=== PATIENT | male | born 1940 | race Caucasian/White ===

== ENCOUNTER 2023-09-28 17:20 | Outpatient (REF) | payer MEDICARE, SELFPAY ==
--- NOTE | 2023-09-28 13:15 | SKI_PTH ---
PATIENT: Gerardo Gordon LOC: [facility] U#:[id number] AGE/SX: 83/M ROOM: RE09/28/[address]: DEANA VENEGAS : 1940 BED: DIS: 09/28/2023 SPEC #: [id number] RECD: 09/28/23 18:12 STATUS: STEPHANIA REMaria Victoria #: [id number] VARUN: 09/28/23 13:[address]: DEANA VENEGAS DEPT: Surgical Specimen RECD BY: Rula Marin ENTERED: 09/28/23 18:13 SP TYPE: SKI OTHR DR: Darling Pena Tissues: 1 - SKIN BIOPSY(SHAVE/PUNCH) Procedures: SKIN LEVEL 4 Comments: [id number]
[2023-09-28 16:51] LABS: ALT 22 U/L (16-63); AST 21 U/L (15-37); Albumin 3.1 g/dL (3.4-5.0); Alkaline Phosphatase 104 U/L (46-116); Anion Gap 10.3 mmol/L (3-11); BUN 20 mg/dL (7-18); Bilirubin, Total 0.44 mg/dL (0.2-1.0); CO2 25.7 mmol/L (21.0-32.0); CREATININE 1.3 mg/dL (0.70-1.30); Calcium 8.9 mg/dL (8.5-10.1); Chloride 103 mmol/L (98-107); Estimated GFR 55.19 (mL/min/1.73m2); Glucose 96 mg/dL (74-106); Sodium 139 mmol/L (136-145); Total Protein 7.2 g/dL (6.4-8.2)
== END 2023-09-28 17:21 | disposition home or self-care (01) ==
LOC: LBN 17:20
PROVIDERS: Visit Provider Nurse Practitioner Family
DX: L03.114 Cellulitis of left upper limb (principal); D48.5 Neoplasm of uncertain behavior of skin
CPT/HCPCS: 80053; 87077; 87070; 87186; 87205; 88305

== ENCOUNTER 2023-10-09 19:15 | Outpatient (REF) | payer MEDICARE, SELFPAY | END 2023-10-09 19:16 | disposition home or self-care (01) | LOC: LBN 19:15 | PROVIDERS: Visit Provider Physician Assistant Medical | DX: C44.92 Squamous cell carcinoma of skin, unspecified (principal) | CPT/HCPCS: 87077; 87070; 87186; 87205 ==

== ENCOUNTER 2024-05-22 04:00 | Inpatient (IN) | payer MEDICARE, OTHER, SELFPAY ==
[2024-05-22] VITALS (42 sets, daily range): BP systolic 90–144; BP diastolic 54–78; PULSE 70–147; RESP 8–25; TEMP 37.4–37.9; O2SAT 94–99
--- NOTE | 2024-05-22 04:00 | DI.CT_ITS ---
Exam(s) CT HEAD FACIAL WO EXAM: CT HEAD FACIAL WO CLINICAL HISTORY: confused. TECHNIQUE: Imaging Protocol: Axial computed tomography images with coronal and sagittal reformatted images were created and reviewed COMPARISON: CT HEAD WITHOUT CONTRAST from 04/30/2016 FINDINGS: CT Head: Ventricles and Extra axial spaces: Normal in size and morphology for the patient's age. Hemorrhage: None. Cerebral parenchyma: There are areas of decreased attenuation in the white matter consistent with chr onic microvascular ischemic disease. No evidence of an acute territorial infarct. No acute mass eff ect. Midline shift: None. Brainstem/Cerebellum: Normal. Calvarium: Normal. Visualized Paranasal sinuses/Mastoids: Clear. Soft Tissues: Unremarkable. CT Face: There is artifact from the patient's dental work. Facial Bones: No definite fracture is noted in facial bones. There is no soft tissue swelling over t he nasal bone to suggest acute injury. Please correlate clinically. Sinuses and Mastoids: Unremarkable. Globes, extraocular muscles, optic nerves and retrobulbar fat: Normal. Upper aerodigestive tract: Normal. Mandible and bilateral temporomandibular joints: Normal. Soft tissues: Normal. IMPRESSION: 1. No acute intracranial process. 2. No acute fracture or subluxation in the cervical spine. 3. No definite acute facial fracture. There is no soft tissue swelling seen over the nasal bones to s uggest acute injury. Please correlate clinically. RADIATION DOSE DELIVERED: !Error Total DLP DATA REPOSITORY: All CT scans at this facility are submitted to the National Radiology Data Registry (NRDR) Dose Index Registry (DIR) with the [employer] (ACR). RADIATION OPTIMIZATION: All CT scans at this facility use at least one of these dose optimization te chniques: automated exposure control; mA and/or kV adjustment per patient size (includes targeted exa ms where dose is matched to clinical indication); or iterative reconstruction.
--- NOTE | 2024-05-22 04:00 | RT.EKG_ITS ---
APPROVED REPORT Exam: Resting ECG Reason for Exam: weakness Patient Location: E HR:80 bpm ECG Measurements Heart Rate 80 AXIS TX 236 P 57 QRSd 184 QRS -30 QT 465 T 124 QTc 538 Conclusion Sinus rhythm...normal P axis, V-rate 60- 99 Prolonged TX interval...TX >220, V-rate 50- 90 Left bundle branch block...QRSd>120, broad/notched R
--- NOTE | 2024-05-22 04:07 | ED.GENADUL_ITS ---
Discharge Plan Discharge Details Chief Complaint: GenMedical Primary Care Provider: Unknown,Unknown ED Provider: Magdi Day Home Meds and New Rx's Prescriptions: No Action No Known Home Meds HPI General Date/Time Provider Initiated Documentation: 05/22/24 04:07 . HPI Narrative: Patient presents emergency department via ambulance and was a very poor histo israel stating that he has not been feeling well very weak and has a lesion in his left hand that has been gone on for weeks. Reports fever chills and discomfort Related Data Home Medications ?Medication ?Instructions ?Recorded ?Confirmed Unknown [No Known Home Meds] 04/30/16 05/22/24 Allergies Allergy/AdvReac Type Severity Reaction Status Date / Time No Known Allergies Allergy Verified 05/22/24 04:34 General Stated Complaint: GenMedical KENNETH: 3 Review of Systems Narrative: Review of Systems: Constitutional: No fevers, chills, sweats Eye: No recent visual problems ENT: No ear pain, nasal congestion, sore throat Respiratory: No shortness of breath, cough Cardiovascular: No Chest pain, palpitations, syncope Gastrointestinal: No nausea, vomiting, diarrhea Genitourinary: No hematuria Les/Lymph: Negative for bruising tendency, swollen lymph glands Endocrine: Negative for excessive thirst, excessive hunger Musculoskeletal: No back pain, neck pain, joint pain, muscle pain, decreased range of motion Integumentary: No rash, pruritus, abrasions Neurologic: Alert & oriented X 4 Psychiatric: No anxiety, depression Exam Narrative Exam Narrative: Exam; vitals signs as reported above normal Constitutional; In no acute distress, afebrile General: cooperative, healthy appearing, comfortable and no acute distress HEENT: Head: normal to inspection, no palpable skull fracture and normocephalic atraumatic Eyes: : appearance normal, both eyes and all related structures EOM intact bilaterally Pupils: PERRL : conjunctiva normal Direct ophthalmoscopy: normal light reflex, normal conjunctiva, normal visual acuity Ears: Normal TM, normal external canal Nose: normal no rhinorreha Neck no JVD, supple non tender Neck: normal visual inspection, full ROM and no lymphadenopathy Chest: normal inspection of the chest Respiratory : normal respiratory effort and able to speak in complete sentences no wheezing no rales Cardio Rate: regular rate, rhythm: regular rhythm normal heart sounds S1 and S2 no murmurs, gallops, or rubs GI : normal to inspection, normal bowel sounds, soft, non tender, non distended, no organomegaly Back/Spine/ no CVA tenderness Thoracic/Lumbar Spine: no tenderness or deformities Skin no rashes or lesions Neuro: patient alert oriented x 4 and no meningeal signs, Cranial Nerves: CN's II-XI intact bilaterally, Cognition: normal cognition, Speech: speech normal, Gait: normal gait, Depp tendon reflexes normal 2+ muscle strength 5/5 bilaterally Extremities, redness swelling in the dorsal aspect of the left hand up to the mid forearm with a central necrotic foul-smelling fungating lesion : normal Rectal: Deferred Course Vital Signs Vital signs: Vital Signs Temperature 37.5 C 05/22/24 04:01 Pulse 81 05/22/24 04:01 Respiratory Rate 20 05/22/24 04:01 Pulse Oximetry 98 05/22/24 04:01 Temperature 37.5 C 05/22/24 04:01 Temperature Source Temporal Artery Scan 05/22/24 04:01 Pulse 81 05/22/24 04:01 Respiratory Rate 20 05/22/24 04:01 Blood Pressure Position Supine 05/22/24 04:01 Pulse Oximetry 98 05/22/24 04:01 Oxygen Delivery Method Room Air 05/22/24 04:01 Oxygen Flow Rate 0 05/22/24 04:01 Pain Level 0 05/22/24 04:01 Medical Decision Making MDM: Summary: Patient was confused who has a necrotic lesion in the left hand with probable infection and a fungating mass which probably is a neoplasia. He will need to be admitted for management and debridement wound care and biopsy of the lesion he was given IV antibiotics also he is dehydrated with a BUN and creatinine elevation. Data Review Analysis All the data on this patient was reviewed by me including laboratory and imaging studies as well as bedside studies performed by me Independent review of Studies Imaging Lab: Risk Stratification: Differential Diagnosis: 1. 2. 3. 4. 5. Consultants: Shared disposition: Impression: Quality:SDOH Health Related Social Needs: No Data to Display [facility] Social History Smoking/Tobacco Use Status: Never Smoking risk assessment performed?: Yes Alcohol Intake: never Substance use type: does not use Housing: house Do you feel safe at home: Yes Do you feel safe in your relationship?: Yes
[2024-05-22 04:33] LABS: Source Nasal/Nares
[2024-05-22] MEDS: Lactated Ringers 1,000 ML 2100 ML IV ×2 (04:33→05:01)
[2024-05-22 04:42] LABS: Abs Immature Grans 0.06 10^3/uL (0.0-0.06); Absolute Basophil Count 0.02 10^3/uL (0.0-0.2); Absolute Eosinophil Count 0.14 10^3/uL (0.0-0.7); Absolute Lymphocyte Count 1.92 10^3/uL (1.2-3.4); Absolute Monocyte Count 0.89 10^3/uL (0.1-0.8); Absolute Neutrophil Count 7.94 10^3/uL (1.2-6.7); Basophils % 0.2 %; Eosinophils % 1.3 %; HCT 38.1 % (40.0-50.0); HGB 12.4 g/dL (13.5-17.5); Immature Grans % 0.5 %; Lymphocytes % 17.5 %; MCHC 32.5 % (32.0-36.0); MCV 92 fL (80-95); MPV 9.1 fL (8.0-11.0); Monocytes % 8.1 %; Neutrophils % 72.4 %; Platelet Count 283 10^3/uL (130-400); RBC 4.13 10^6/uL (4.36-5.78); RDW 13.5 % (11.8-14.1); RDW-SD 45.1 fL; WBC 10.97 10^3/uL (4.4-10.8)
[2024-05-22 04:59] LABS: ALT 14 U/L (16-63); AST 15 U/L (15-37); Albumin 2.8 g/dL (3.4-5.0); Alkaline Phosphatase 118 U/L (46-116); Anion Gap 6.6 mmol/L (3-11); BUN 21 mg/dL (7-18); Bilirubin, Total 0.61 mg/dL (0.2-1.0); CO2 29.4 mmol/L (21.0-32.0); CREATININE 1.5 mg/dL (0.70-1.30); Calcium 11.4 mg/dL (8.5-10.1); Chloride 106 mmol/L (98-107); Estimated GFR 46.48 (mL/min/1.73m2); Glucose 114 mg/dL (74-106); Potassium 3.6 mmol/L (3.5-5.1); Sodium 142 mmol/L (136-145); Total Protein 8.1 g/dL (6.4-8.2); Troponin I 14 ng/L (<or=76)
[2024-05-22 05:09] LABS: COVID-19 PCR Negative (Negative)
[2024-05-22 06:24] LABS: Troponin I 17 ng/L (<or=76)
--- NOTE | 2024-05-22 06:44 | DI.VRAD_ITS ---
PROCEDURE INFORMATION: Exam: CT Head Without Contrast Exam date and time: 05/22/2024 6:16 AM Age: 83 years old Clinical indication: Injury or trauma; Blunt trauma (contusions or hematomas) and other: Confusion; Other: Frequent falls and confusion TECHNIQUE: Imaging protocol: Computed tomography of the head without contrast. COMPARISON: No relevant prior studies available. FINDINGS: Brain: No intracranial hemorrhage appreciated. No significant focal mass effect or significant midline shift. Generalized parenchymal volume loss. Chronic ischemic changes are noted. Cerebral ventricles: No disproportionate ventriculomegaly. Paranasal sinuses: No air-fluid levels seen. Mastoid air cells: No mastoid effusion. Bones: Right nasal bone deformities of indeterminate chronicity. Soft tissues: No acute findings. Vasculature: Arterial calcifications. IMPRESSION: 1. No intracranial sequelae of trauma appreciated. 2. Findings as above. 3. Additional studies dictated separately. PROCEDURE INFORMATION: Exam: CT Maxillofacial Without Contrast Exam date and time: 05/22/2024 6:16 AM Age: 83 years old Clinical indication: Injury or trauma; Blunt trauma (contusions or hematomas) and other: Confusion; Other: Frequent falls and confusion TECHNIQUE: Imaging protocol: Computed tomography of the face without contrast. COMPARISON: No relevant prior studies available. FINDINGS: Limitations: Artifact from metallic dental hardware obscures surrounding tissues. Paranasal sinuses: No air-fluid levels seen. Orbital cavities: Globes intact. Lymph nodes: Bilateral cervical lymph nodes. Vasculature: Arterial calcifications. Bones: Right nasal bone deformities of indeterminate chronicity. Soft tissues: No acute pertinent abnormality demonstrated. IMPRESSION: 1. Right nasal bone deformities of indeterminate chronicity. Clinical correlation and comparison with prior studies advised. 2. Additional studies dictated separately. Dictated and Authenticated by: Claudia Saldivar MD. Orderin Shay Fairbanks MD
[2024-05-22 06:53] LABS: Bilirubin Negative (Negative); Blood Trace-intact (Negative); Clarity Sl Cloudy (Clear); Glucose Negative (Negative); Ketones Negative (Negative); Leukocyte Esterase Negative (Negative); Nitrite Negative (Negative)
[2024-05-22 07:03] LABS: Bacteria Rare HPF (Negative); Crystals Few Amorphous HPF (Negative); Epithelial Cells Negative HPF (Negative); Other Cells Negative (Negative); RBC 0-2 HPF (0-2); WBC 0-2 HPF (0-5)
[2024-05-22 07:04] LABS: C & S Indicated? C&S Done As Ordered; Casts Negative LPF (Negative); Mucus Negative (Negative)
--- NOTE | 2024-05-22 07:15 | DI.RAD_ITS ---
Exam(s) XR HAND LT COMPLETE XR WRIST LT COMPLETE EXAM: XR HAND LT COMPLETE and XR wrist LT complete CLINICAL HISTORY: Fungating mass, cellulitis, eval osteo. TECHNIQUE: 2D digital imaging was performed of the left wrist and hand. Seven views were obtained. AP, lateral and oblique views were obtained. COMPARISON: There are no priors for comparison. FINDINGS: BONES: No acute fracture is present. Bones are osteopenic. There is thinning of the with of the shaf ts of both the 4th and 5th metacarpal bones. There is loss of the cortex along the radial aspect of the diaphysis of the 4th metacarpal bone. Osteomyelitis should be considered. JOINTS: No dislocation present. There are degenerative changes seen in the hand and wrist, particular ly at the 1st CMC joint.. SOFT TISSUE: There is marked soft tissue swelling seen at the ulnar aspect of the hand and wrist. No foreign body is identified. There is a defect at the skin surface on the dorsal aspect of the hand suspicious for an ulcer. IMPRESSION: 1. Marked soft tissue swelling at the dorsal and ulnar aspect of the hand and wrist. On the lateral view of the hand there is E defect seen at the skin surface suspicious for an ulceration. 2. There appears to be loss of the cortex seen at the radial aspect and dorsal aspect of the diaphysi s of the 4th metacarpal bone suspicious for osteomyelitis. 3. Diffuse osteopenia. 4. An MRI of the hand without and with contrast is recommended for further evaluation. DATA REPOSITORY: RADIATION DOSE DELIVERED:
--- NOTE | 2024-05-22 07:42 | W.EDPROG ---
Date of service: 05/22/24 Time of Service: 07:51 Medical Decision Making In brief, this is an 83-year-old male patient with a history of melanoma of the left hand, who was brought in by EMS with weakness and increasing pain in his left hand. The patient was evaluated by the prior provider, who noted a fungating mass with surrounding cellulitis, concerning for infection, for which the patient was started on vancomycin. He had a CT scan of his brain that was unremarkable, and his laboratory studies were reviewed by myself, showing no significant leukocytosis, mild anemia, and mild renal dysfunction with a BUN of 21 and a creatinine of 1.5. Otherwise no significant abnormalities, UA with trace hematuria but otherwise noninfectious, COVID-negative. At the time that I took over this patient's care, he was awaiting evaluation by the hospitalist service as he will certainly require admission for intravenous antibiotics. After discussion with their team, the decision to proceed with x-ray imaging to evaluate for osteomyelitis was made. I did have an extended conversation with the patient and his family member regarding their wishes and goals of care. 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 He states after an extended discussion that he would be amenable to diagnostics including laboratory studies and x-rays, as well as treatment for this infection, but is not desiring of treatment for the mass on his hand. He is concerned that medical treatment will cause him to lose the function of his hands, and I am concerned that the malignancy is extensive enough that definitive management would likely involve significant disability to that left hand. X-ray imaging reveals a concern for possible osteomyelitis of the fourth metacarpal, right arm I did discuss this patient's case with orthopedics, who states that they would not take him down to [facility] or do any interventions prior to MRI imaging, and even then given his hemodynamic stability and lack of laboratory abnormalities could possibly be done in the outpatient environment. I discussed this case with the hospitalist, and feel that the patient would benefit from admission for stabilization and transition to oral antibiotics, as well as for MRI imaging tomorrow for surgical planning and diagnostic clarity. The hospitalist is graciously accepted this patient for admission to their service and he was transferred from our department without incident. Leanna Bowen MD Medical Records Medical records reviewed: Yes I reviewed the patient's medical records. Lab Data Lab results reviewed: Yes I reviewed the patient's lab results. Quality:SDOH Health Related Social Needs: No Data to Display Discharge Plan Discharge Details Chief Complaint: GenMedical Admit Date/Time: 05/22/24 12:41 Admit Provider: Jag Silverio Attending Provider: Jga Silverio Primary Care Provider: Yue,Unknown ED Provider: Leanna Bowen Discharge Data Discharge Date/Time-TO BE ENTERED AT DEPARTURE: 05/22/24 14:35
--- NOTE | 2024-05-22 09:40 | W.PM.PROGNOT ---
Date of Service Date of service: 05/22/24 Time of Service: 09:40 Assessment and Plan Assessment and plan (1) Mass of hand: Status: Acute Assessment and plan: I spoke with Dr. Day earlier this morning regarding my opinion of what appears to be a soft tissue mass on the dorsum of Mr. Gordon's left hand. It sounds like he came to the hospital because of concerns of infection. He was found to have a elevation of his white blood cell count, and some clinical features that raise concern for soft tissue infection associated with this mass. When I came to see the patient, he was under the care of Dr. Bowen. 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 She did show me a photograph of the lesion, which appears to be a large fungating mass replacing the majority of the dorsum of the left hand. Obviously, my opinion and recommendations are quite limited without a detailed physical exam, but I think it safe to say that this represents some type of relatively advanced malignancy. This would certainly compromise the tissue integrity, and expose him to risk of infections. I am more than happy to help with a biopsy, if the Gordon's are interested in a tissue diagnosis. It is hard to imagine any definitive treatment, or even palliative therapies in that regard, that would not involve some type of advanced surgical resection and probably radiation therapy. If the Gordon's reconsider how they would like this diagnosed and treated, or if they have questions regarding what those options might look like with regards to the episcopalian beliefs, I more than happy to participate. Objective Last Vital Signs Temp 99.5 F 05/22/24 04:01 Pulse 84 05/22/24 06:31 Resp 20 05/22/24 06:31 BP 133/62 05/22/24 06:30 Pulse Ox 97 05/22/24 06:31 Laboratory Results - last 24 hr 05/22/24 05/22/24 05/22/24 04:25 05:50 06:35 WBC 10.97 H RBC 4.13 L Hgb 12.4 L Hct 38.1 L MCV 92 MCH 30.0 MCHC 32.5 RDW 13.5 Plt Count 283 MPV 9.1 Immature Gran % 0.5 Neutrophils % 72.4 Lymphocytes % 17.5 Monocytes % 8.1 Eosinophils % 1.3 Basophils % 0.2 Nucleated RBC % 0.0 Absolute Neutrophils 7.94 H Absolute Lymphocytes 1.92 Absolute Monocytes 0.89 H Absolute Eosinophils 0.14 Absolute Basophils 0.02 Sodium 142 Potassium 3.6 Chloride 106 Carbon Dioxide 29.4 Anion Gap 6.6 BUN 21 H Creatinine 1.5 H Est GFR (CKD-EPI 2020) 46.48 Glucose 114 H Calcium 11.4 H Magnesium 2.0 Total Bilirubin 0.61 AST 15 ALT 14 L Alkaline Phosphatase 118 H Troponin I 14 17 Total Protein 8.1 Albumin 2.8 L Urine Color Yellow Urine Clarity Sl Cloudy Urine pH 7.0 Ur Specific [place] 1.020 Urine Protein Negative Urine Ketones Negative Urine Blood Trace-intact H Urine Nitrite Negative Urine Bilirubin Negative Urine Urobilinogen 1.0 H Ur Leukocyte Esterase Negative Urine RBC 0-2 Urine WBC 0-2 Ur Epithelial Cells Negative Urine Crystals Few Amorphous Urine Bacteria Rare Urine Casts Negative Urine Mucus Negative Urine Other Negative Ur Culture Indicated? C&S Done As Ordered Urine Glucose Negative COVID-19 Source Nasal/Nares SARS-CoV-2 (PCR) Negative Time Spent with Patient Time Spent with Patient: <25 minutes Time was spent: preparing to see the patient(eg.review tests), referring, communicating with other health hospice care sales consultant, indepentently interpreting results and care coordination
--- NOTE | 2024-05-22 12:42 | HPE_ITS ---
Date of service: 05/22/24 Time of Service: 12:42 Assessment and Plan Assessment and plan (1) Mass of hand: Status: Acute Assessment and plan: Per record history of melanoma. Now appears infected. Blood cultures are pending. Does not meet criteria for sepsis, hemodynamically stable. Continue vancomycin pharmacy dosing Imaging concerning for possible osteomyelitis. Awaiting MRI for tomorrow. ED discussed case with orthopedics at [facility] who is in agreement with plan to continue antibiotics and obtain advanced imaging. Continue pain management Follow labs including inflammatory markers DVT prophylaxis enoxaparin daily History of Present Illness Narrative: This is a 83-year-old male patient past medical history significant 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 Does not meet sepsis criteria with stable vital signs. He was started on vancomycin. Blood cultures have been obtained and pending inflammatory markers have been added.. He received IV bolus in the emergency department. He underwent imaging of the hand that did show marked soft tissue swelling and an area on the radial and dorsal aspect of the diaphysis of the fourth metatarsal carpals suspicious for osteomyelitis. Imaging by MRI is recommended to further characterize. The case was discussed with orthopedics at [facility] who is in agreement with continuation of antibiotics for now and MRI. Hospitalist is asked to admit to the medical surgical unit for further treatment and management. Of note it is documented patient is a poor historian and did undergo a head CT which showed no acute findings Review of Systems All systems reviewed & are unremarkable except as noted in HPI and below PFSH All Active Problems (Updated 05/22/24 @ 09:41 by Varun Benitez MD) Mass of hand (Acute) Social History Smoking/Tobacco Use Status: Never Smoking risk assessment performed?: Yes Alcohol Intake: never Substance use type: does not use Housing: house Do you feel safe at home: Yes Do you feel safe in your relationship?: Yes Meds Allergies and Home Medications Allergies Allergy/AdvReac Type Severity Reaction Status Date / Time No Known Allergies Allergy Verified 05/22/24 04:34 Home Medications ?Medication ?Instructions ?Recorded ?Confirmed ?Type Unknown [No Known Home Meds] 04/30/16 05/22/24 History Exam Narrative Exam Narrative: Elderly male of stated age no acute distress head is atraumatic eyes nonicteric noninjected EOMs intact oral mucosas moist neck supple full range of motion no JVD no meningeal signs cardiovascular regular rate and rhythm respirations even and unlabored abdomen benign left hand dorsal aspect up to his mid forearm with necrotic appearing lesion. Surrounding erythema. Results Labs 05/22/24 04:25 05/22/24 04:25 Labs: Laboratory Results - last 24 hr 05/22/24 05/22/24 05/22/24 04:25 05:50 06:35 WBC 10.97 H RBC 4.13 L Hgb 12.4 L Hct 38.1 L MCV 92 MCH 30.0 MCHC 32.5 RDW 13.5 Plt Count 283 MPV 9.1 Immature Gran % 0.5 Neutrophils % 72.4 Lymphocytes % 17.5 Monocytes % 8.1 Eosinophils % 1.3 Basophils % 0.2 Nucleated RBC % 0.0 Absolute Neutrophils 7.94 H Absolute Lymphocytes 1.92 Absolute Monocytes 0.89 H Absolute Eosinophils 0.14 Absolute Basophils 0.02 Sodium 142 Potassium 3.6 Chloride 106 Carbon Dioxide 29.4 Anion Gap 6.6 BUN 21 H Creatinine 1.5 H Est GFR (CKD-EPI 2020) 46.48 Glucose 114 H Calcium 11.4 H Magnesium 2.0 Total Bilirubin 0.61 AST 15 ALT 14 L Alkaline Phosphatase 118 H Troponin I 14 17 Total Protein 8.1 Albumin 2.8 L Urine Color Yellow Urine Clarity Sl Cloudy Urine pH 7.0 Ur Specific [place] 1.020 Urine Protein Negative Urine Ketones Negative Urine Blood Trace-intact H Urine Nitrite Negative Urine Bilirubin Negative Urine Urobilinogen 1.0 H Ur Leukocyte Esterase Negative Urine RBC 0-2 Urine WBC 0-2 Ur Epithelial Cells Negative Urine Crystals Few Amorphous Urine Bacteria Rare Urine Casts Negative Urine Mucus Negative Urine Other Negative Ur Culture Indicated? C&S Done As Ordered Urine Glucose Negative COVID-19 Source Nasal/Nares SARS-CoV-2 (PCR) Negative 05/22/24 07:07 WBC RBC Hgb Hct MCV MCH MCHC RDW Plt Count MPV Immature Gran % Neutrophils % Lymphocytes % Monocytes % Eosinophils % Basophils % Nucleated RBC % Absolute Neutrophils Absolute Lymphocytes Absolute Monocytes Absolute Eosinophils Absolute Basophils Sodium Potassium Chloride Carbon Dioxide Anion Gap BUN Creatinine Est GFR (CKD-EPI 2020) Glucose Calcium Magnesium Total Bilirubin AST ALT Alkaline Phosphatase Troponin I Cancelled Total Protein Albumin Urine Color Urine Clarity Urine pH Ur Specific [place] Urine Protein Urine Ketones Urine Blood Urine Nitrite Urine Bilirubin Urine Urobilinogen Ur Leukocyte Esterase Urine RBC Urine WBC Ur Epithelial Cells Urine Crystals Urine Bacteria Urine Casts Urine Mucus Urine Other Ur Culture Indicated? Urine Glucose COVID-19 Source SARS-CoV-2 (PCR) Last Vital Signs Temp 37.5 C 05/22/24 04:01 Pulse 71 05/22/24 10:31 Resp 14 05/22/24 10:00 BP 105/62 05/22/24 10:31 Pulse Ox 96 05/22/24 10:31 Time Spent Time spent with Patient: 40-54 minutes Time was spent: preparing to see the patient(eg.review tests), obtaining and/or reviewing separately otained hiistory, ordering medications,tests, procedures, indepentently interpreting results and counseling the patient
[2024-05-22 12:54] LABS: ESR 26 mm/hr (0-20)
[2024-05-22 13:00] LABS: C-Reactive Protein 3.41 mg/dL (<or=0.5)
--- NOTE | 2024-05-22 14:47 | W.PC.ACHO ---
Registration Status: Primary Language: Preferred Language: ED Information & Data Chief Complaint GenMedical 05/22/24 04:12 Other Complaint Fall/Non TraumaCriteria 05/22/24 04:01 Triage Note pt presents to er from home 05/22/24 04:01 via ems with c/o last two weeks of dizziness, increased weakness, 3 falls in last 10 days; called ems for feeling too weak to get out of bed; reports has melanoma on the left hand that they are trying to treat at home with natural remedies. Most Recent Vital Signs Temperature 37.5 C 05/22/24 04:01 Temperature Source Temporal Artery Scan 05/22/24 04:01 Pulse 84 05/22/24 13:46 Pulse 81 05/22/24 10:00 Respiratory Rate 14 05/22/24 10:00 Blood Pressure 107/67 05/22/24 13:46 Blood Pressure Mean 79 05/22/24 13:46 Blood Pressure Position Supine 05/22/24 04:01 Pulse Oximetry 95 05/22/24 11:31 Oxygen Delivery Method Room Air 05/22/24 04:01 Oxygen Flow Rate 0 05/22/24 04:01 Pain Level 0 05/22/24 04:01 Allergies No Known Allergies Allergy (Verified 05/22/24 04:34) Precautions Isolation Standard precaution 05/22/24 04:07 Active Medications Generic Name Dose Route Start Last Admin Trade Name Freq PRN Reason Stop Dose Admin Vancomycin HCl 1,150 mg/ 250 mls @ 166.6666 mls/hr 05/22/24 04:15 05/22/24 06:05 Sodium Chloride IVPB Infused Q12H RADHA Infusion IV IV Catheter Type [Right Peripheral IV Antecubital] IV Catheter Gauge [Right 18 Antecubital] Diet Orders Category Date Time Status Regular/Normal [DIET] Nutrition 05/22/24 Lunch Active Diagnostics 05/22/24 05/22/24 05/22/24 Range/Units 07:07 06:35 05:50 WBC (4.4-10.8) 10^3/uL RBC (4.36-5.78) 10^6/uL Hgb (13.5-17.5) g/dL Hct (40.0-50.0) % MCV (80-95) fL MCH (27.0-33.0) pg MCHC (32.0-36.0) % RDW (11.8-14.1) % Plt Count (130-400) 10^3/uL MPV (8.0-11.0) fL Immature Gran % % Neutrophils % % Lymphocytes % % Monocytes % % Eosinophils % % Basophils % % Nucleated RBC % (0.0-0.3) % Absolute Neutrophils (1.2-6.7) 10^3/uL Absolute Lymphocytes (1.2-3.4) 10^3/uL Absolute Monocytes (0.1-0.8) 10^3/uL Absolute Eosinophils (0.0-0.7) 10^3/uL Absolute Basophils (0.0-0.2) 10^3/uL ESR (0-20) mm/hr Sodium (136-145) mmol/L Potassium (3.5-5.1) mmol/L Chloride (98-107) mmol/L Carbon Dioxide (21.0-32.0) mmol/L Anion Gap (3-11) mmol/L BUN (7-18) mg/dL Creatinine (0.70-1.30) mg/dL Est GFR (CKD-EPI 2020) (mL/min/1.73m2) Glucose (74-106) mg/dL Calcium (8.5-10.1) mg/dL Magnesium (1.8-2.4) mg/dL Total Bilirubin (0.2-1.0) mg/dL AST (15-37) U/L ALT (16-63) U/L Alkaline Phosphatase (46-116) U/L Troponin I Cancelled 17 (<or=76) ng/L C-Reactive Protein (<or=0.5) mg/dL Total Protein (6.4-8.2) g/dL Albumin (3.4-5.0) g/dL Urine Color Yellow (Yellow) Urine Clarity Sl Cloudy (Clear) Urine pH 7.0 (5-8) Ur Specific [place] 1.020 (1.005-1.025) Urine Protein Negative (Neg-Trace) mg/dL Urine Ketones Negative (Negative) mg/dL Urine Blood Trace-intact H (Negative) Urine Nitrite Negative (Negative) Urine Bilirubin Negative (Negative) Urine Urobilinogen 1.0 H (Up to 0.2) mg/dL Ur Leukocyte Esterase Negative (Negative) Urine RBC 0-2 (0-2) HPF Urine WBC 0-2 (0-5) HPF Ur Epithelial Cells Negative (Negative) HPF Urine Crystals Few Amorphous (Negative) HPF Urine Bacteria Rare (Negative) HPF Urine Casts Negative (Negative) LPF Urine Mucus Negative (Negative) Urine Other Negative (Negative) Ur Culture Indicated? C&S Done As Ordered Urine Glucose Negative (Negative) mg/dL COVID-19 Source SARS-CoV-2 (PCR) (Negative) 05/22/24 Range/Units 04:25 WBC 10.97 H (4.4-10.8) 10^3/uL RBC 4.13 L (4.36-5.78) 10^6/uL Hgb 12.4 L (13.5-17.5) g/dL Hct 38.1 L (40.0-50.0) % MCV 92 (80-95) fL MCH 30.0 (27.0-33.0) pg MCHC 32.5 (32.0-36.0) % RDW 13.5 (11.8-14.1) % Plt Count 283 (130-400) 10^3/uL MPV 9.1 (8.0-11.0) fL Immature Gran % 0.5 % Neutrophils % 72.4 % Lymphocytes % 17.5 % Monocytes % 8.1 % Eosinophils % 1.3 % Basophils % 0.2 % Nucleated RBC % 0.0 (0.0-0.3) % Absolute Neutrophils 7.94 H (1.2-6.7) 10^3/uL Absolute Lymphocytes 1.92 (1.2-3.4) 10^3/uL Absolute Monocytes 0.89 H (0.1-0.8) 10^3/uL Absolute Eosinophils 0.14 (0.0-0.7) 10^3/uL Absolute Basophils 0.02 (0.0-0.2) 10^3/uL ESR 26 H (0-20) mm/hr Sodium 142 (136-145) mmol/L Potassium 3.6 (3.5-5.1) mmol/L Chloride 106 (98-107) mmol/L Carbon Dioxide 29.4 (21.0-32.0) mmol/L Anion Gap 6.6 (3-11) mmol/L BUN 21 H (7-18) mg/dL Creatinine 1.5 H (0.70-1.30) mg/dL Est GFR (CKD-EPI 2020) 46.48 (mL/min/1.73m2) Glucose 114 H (74-106) mg/dL Calcium 11.4 H (8.5-10.1) mg/dL Magnesium 2.0 (1.8-2.4) mg/dL Total Bilirubin 0.61 (0.2-1.0) mg/dL AST 15 (15-37) U/L ALT 14 L (16-63) U/L Alkaline Phosphatase 118 H (46-116) U/L Troponin I 14 (<or=76) ng/L C-Reactive Protein 3.41 H (<or=0.5) mg/dL Total Protein 8.1 (6.4-8.2) g/dL Albumin 2.8 L (3.4-5.0) g/dL Urine Color (Yellow) Urine Clarity (Clear) Urine pH (5-8) Ur Specific [place] (1.005-1.025) Urine Protein (Neg-Trace) mg/dL Urine Ketones (Negative) mg/dL Urine Blood (Negative) Urine Nitrite (Negative) Urine Bilirubin (Negative) Urine Urobilinogen (Up to 0.2) mg/dL Ur Leukocyte Esterase (Negative) Urine RBC (0-2) HPF Urine WBC (0-5) HPF Ur Epithelial Cells (Negative) HPF Urine Crystals (Negative) HPF Urine Bacteria (Negative) HPF Urine Casts (Negative) LPF Urine Mucus (Negative) Urine Other (Negative) Ur Culture Indicated? Urine Glucose (Negative) mg/dL COVID-19 Source Nasal/Nares SARS-CoV-2 (PCR) Negative (Negative) 05/22/24 06:35 Urine Culture - Pending Urine - Voided 05/22/24 04:56 Blood Culture - Pending Blood 05/22/24 04:25 Blood Culture - Pending Blood Intake and Output - 24 Hour Total 05/22/24 03:56 thru 05/22/24 14:18 Intake Total 2265 Balance 2675 Weight 76.7 kg Intake: IV 2195 Oral 480 Falls Risk Assessment History of Falls Admit Due to Fall 05/22/24 04:08 Contributing Factors Confusion,Unstable, 05/22/24 04:08 Impairments,Incontinence Ambulatory Aids Uses ambulatory device 05/22/24 04:08 Tubes/Lines None 05/22/24 04:08 Gait Evaluation W/no contributing factors 05/22/24 04:08 Cognition Cognitive impairment 05/22/24 04:08 Fall Total Score 77 05/22/24 04:08 Level of Risk Maximum Risk 05/22/24 04:08 Problems (Last Reviewed 05/22/24 @ 06:34 by Magdi Day MD) Mass of hand (Acute) v v v v v v v v v Sending and/or Receiving Nurses: Please use comment section below to note any information pertinent to the patient hand-off not included above. Information / Comments: Neuro: AxOx3 Cardiac: RRR Resp: TERE Skin: Melanoma of right hand LDA: 18g RAC Patient is a [employer] of [employer] and is only wanting to treat the active infection and not the melanoma itself. Vancomycin was only medication administered in ED. [facility] declined to take patient without MRI which patient refused. Xerofoam/Curlex. Vitals: Temp 37.5, BP 107/67, HR 84, Resp 18, SaO2 95% RA. Report received from: Sierra RN (ED) 14:25
[2024-05-22] MEDS: Enoxaparin 40 MG/0.4 ML SYR SC (18:01)
[2024-05-22] MEDS: Acetaminophen 325 MG TAB 650 MG PO (18:29)
[2024-05-22] MEDS: Normal Saline Flush 10 ML SYR IVP (19:48)
[2024-05-23] VITALS (7 sets, daily range): BP systolic 88–145; BP diastolic 55–74; PULSE 59–92; RESP 16–17; TEMP 37–37.7; O2SAT 91–97
[2024-05-23] MEDS: Normal Saline Flush 10 ML SYR IVP ×3 (05:20→21:41)
[2024-05-23 06:35] LABS: Abs Immature Grans 0.05 10^3/uL (0.0-0.06); Absolute Basophil Count 0.02 10^3/uL (0.0-0.2); Absolute Lymphocyte Count 1.69 10^3/uL (1.2-3.4); Absolute Monocyte Count 0.87 10^3/uL (0.1-0.8); Absolute Neutrophil Count 6.17 10^3/uL (1.2-6.7); Basophils % 0.2 %; Eosinophils % 2.2 %; HGB 10.6 g/dL (13.5-17.5); Immature Grans % 0.6 %; Lymphocytes % 18.8 %; MCH 30.4 pg (27.0-33.0); MCHC 33.1 % (32.0-36.0); MCV 92 fL (80-95); MPV 9.3 fL (8.0-11.0); Monocytes % 9.7 %; Neutrophils % 68.5 %; Platelet Count 217 10^3/uL (130-400); RBC 3.49 10^6/uL (4.36-5.78); RDW 13.5 % (11.8-14.1); RDW-SD 44.9 fL
[2024-05-23 06:57] LABS: ALT 12 U/L (16-63); AST 14 U/L (15-37); Albumin 2.4 g/dL (3.4-5.0); Alkaline Phosphatase 98 U/L (46-116); Anion Gap 8.3 mmol/L (3-11); BUN 18 mg/dL (7-18); Bilirubin, Total 0.82 mg/dL (0.2-1.0); CO2 25.7 mmol/L (21.0-32.0); CREATININE 1.3 mg/dL (0.70-1.30); Calcium 11.1 mg/dL (8.5-10.1); Chloride 107 mmol/L (98-107); Estimated GFR 55.19 (mL/min/1.73m2); Glucose 100 mg/dL (74-106); Potassium 3.5 mmol/L (3.5-5.1); Sodium 141 mmol/L (136-145); Total Protein 6.7 g/dL (6.4-8.2)
[2024-05-23 11:40] LABS: Vancomycin, Random 26.4 ug/mL
--- NOTE | 2024-05-23 13:25 | PT.INIE ---
PT Notes Visit Reasons: Lesion, Cellulitis Left Hand Physical Therapy Inpatient Initial Evaluation Date: 05/23/2024 Referring Doctor: Becky Garcia NP PT Orders: PT CONSULT: reports he is weak Precautions: Fall. Standard. Activity as tolerated. Patient Profile/Admitting Diagnosis: Patient is an 83-year-old male patient admitted for assessment and management of mass on the dorsum of his L hand. Patient has been placed on antibiotic therapy due to increased WBC count along with ongoing signs of infection in the same area. Question of osteomyelitis and advanced malignancy documented but patient and are not fully receptive of medical management/testing recommended. Radiographic impression of L wrist and hand: 1. Marked soft tissue swelling at the dorsal and ulnar aspect of the hand and wrist. On the lateral view of the hand there is E defect seen at the skin surface suspicious for an ulceration. 2. There appears to be loss of the cortex seen at the radial aspect and dorsal aspect of the diaphysis of the 4th metacarpal bone suspicious for osteomyelitis. 3. Diffuse osteopenia. PMHX: Unremarkable Social History/Home Situation: Lives with in a private home. Ambulatory without assistive device. Equipment Owned/DME: None Subjective: Prefers to go home when he is safe to do so. Complained of being woozy this morning when PT tried to help with use of urinal and when PT came in to assess for mobility level. Nearly fainted but did not lose consciousness. expressed significant apprehension over going home today as she is not capable of taking care of as of now. Objective: General Observation: L hand covered with thick gauze. Swelling and redness noted in hand and wrist. L forearm warm to touch compared to the R forearm. L wrist in 30 degrees of flexion which seems to be his position of comfort. Malodorous L hand. Mental Status: Alert and oriented as to person. Able to follow single step commands. Responses off-tangent 50% of the time while on session. Pain: Moderate pain in L hand and forearm that gets worse when moved and touched Vital Signs: Closely monitored by nursing staff ROM: Right Upper Extremity: Shoulder Flexion WFL. Shoulder abduction WFL. Elbow flexion WFL. Wrist flexion WFL. Functional opening and closing of hand WFL. Left Upper Extremity: Shoulder Flexion WFL. Shoulder abduction WFL. Elbow flexion WFL. Wrist flexion 30-40 degres. Wrist extension -30 degrees. Functional opening and closing of hand severely impaired. Right Lower Extremity: Hip flexion WFL. Hip abduction WFL. Knee flexion WFL. Ankle dorsiflexion WFL. Ankle plantarflexion WFL. Left Lower Extremity: Hip flexion WFL. Hip abduction WFL. Knee flexion WFL. Ankle dorsiflexion WFL. Ankle plantarflexion WFL. Strength: Right Upper Extremity: Shoulder flexors 4-/5. Shoulder abductors 4-/5. Elbow flexors 4-/5. Elbow extensors 4-/5. Wrist flexors 5/5. Wrist extensors 5/5.Modular Home Crew Member strong. Left Upper Extremity: Shoulder flexors 4/5. Shoulder abductors 4/5. Elbow flexors 4-/5. Elbow extensors 3-/5. Wrist flexors 1/5. Wrist extensors 1/5. Modular Home Crew Member weak non-existent. Right Lower Extremity: Hip flexors 4-/5. Hip abductors 4-/5. Knee flexors 4-/5. Knee extensors 4-/5. Ankle dorsiflexors 4-/5. Ankle plantarflexors 4-/5. Left Lower Extremity: Hip flexors 4-/5. Hip abductors 4-/5. Knee flexors 4-/5. Knee extensors 4-/5. Ankle dorsiflexors 4-/5. Ankle plantarflexors 4-/5. Bed Mobility/Transfers: maximal cueing provided for use of B hands as needed for support, movement sequence, AD management, and posture to reduce fall risk and minimize pain report Rolling moderate assist of 2 Supine to sit moderate assist of 2 Sit to supine moderate assist of 2 Sit to stand moderate assist of 2 Stand to sit moderate assist of 2 Gait: Deferred Balance: Static Sitting: Good Dynamic Sitting: Fair Static Standing: Poor Dynamic Standing: Poor Special Tests: Mobility Limitations Standardized Measure [facility] AM-PAC 6 clicks Basic Mobility Inpatient Short Form: Raw Score: 9 CMS Score: 81% deficit Informed Consent/Education: Patient and were instructed in purpose of PT consult and plan of care. Agreeable to proceed with established PT POC to achieve personal goals. Assessment: 2 episodes of near syncopal episodes encountered by PT today, one this morning and the other this afternoon. Patient was able to assume standing position for about 1-2 minutes after which collapses onto bed after getting into an altered mental state and becomes momentarily unresponsive (but no loss of consciousness). Rula was able to witness B episodes which have added to her apprehension about taking home without knowing what is going on. She adds that he had done this 3 times at home which led to his fall in all those instances. Patient presents with clinical signs and symptoms consistent with current/admitting diagnoses that have resulted to mobility limitations, gait instability, generalized weakness, and overall ADL decline as demonstrated by the following impairment level findings: 1. Decreased strength to L forearm, hand and wrist 2. Impaired sitting/standing balance 3. Impaired activity tolerance 4. Limitation of joint range of motion in L hand and wrist 5. Near syncopal episodes Impairments are contributing to the following functional limitations: 1. Decline in bed mobility skills 2. Decline in transfer skills 3. Difficulty with ambulation without assistive device and physical assistance 4. Increased completion time for mobility ADL performance 5. Increased risk for falls Patient is assessed [place] a [address]14 moderate complexity based on the following: History: 83-year-old male with past medical history as indicated above Examination: Demonstrable impairment in strength, balance, and mobility level with underlying impairments and functional limitations as exhibited above as well as deficit score of 81% utilizing the [facility] Mobility Inpatient Short Form Presentation: Evolving Decision Makin moderate complexity Goals: Goals X1 week 1. Supine-Sit independent 2. Sit-Supine independent 3. Sit-Stand independent 4. Stand-Sit independent with FWW with L platform 5. Bed-Chair independent with FWW with L platform 6. Chair-Bed independent with FWW with L platform 7. Independent gait on level surface with use of with FWW with L platform for 150 feet without report of pain nor dyspnea 8. Independent stair negotiation while holding onto B rails for at least 3 steps without report of pain nor dyspnea 9. Independent with home exercise program 10. Fair static and dynamic standing balance/tolerance Plan of Care/Treatment Plan: 1-2x/day, 7 days/week x 1 week. Plan of care has been reviewed with the CEMENT GRINDING MILL OPERATOR providing the service under Physical Therapy direction. Initiate Physical Therapy intervention for pain management as needed, strengthening, bed mobility, transfers, gait, stairs, balance training, and use of assistive device. DISCHARGE RECOMMENDATIONS: [] Home with no services [] [] Home with services [specify] [] Home with outpatient PT [] [X] SNF for continued rehabilitation. Patient will benefit from short-term fdc facility placement for continued skilled physical therapy services in order to progress mobility level, strength, and balance in preparation for a safe discharge to home. [] Shelter Care [] [] SNF versus LTC based on ability to participate and progress [] TREATMENT CODE/TIME: 65324 x 20 minutes for 1 unit, 18148 x 16 minutes for 1 unit (13:25-14:01). Thank you for the opportunity to participate in the care of this patient. Unique Bruner PT, DPT, CLT [facility] [place], [place]
[2024-05-23] MEDS: Acetaminophen 325 MG TAB 650 MG PO (15:40)
[2024-05-23] MEDS: Enoxaparin 40 MG/0.4 ML SYR SC (15:44)
--- NOTE | 2024-05-23 16:38 | INITIAL_ITS ---
Date of service: 05/23/24 Time of Service: 11:15 Care Management Initial Assmt Initial Assessment Reason for Hospitalization: Mass of hand, infected melanoma Functional Status/Living Situation Patient Presentation: Gerardo presented to the ER via EMS yesterday wi t c/o weakness and increasing pain in his left hand. XR revealed a concern for osteomyelitis. 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 Gerardo was in the bed with HOB elevated, dozing in and out, when CM met with him and his , Paris. Gerardo and Paris had many concerns and asked to speak to the hospitalist. Gerardo is c/o dizziness, and has almost fallen x 2 since being admitted. Paris is stressed from caring for Gerardo, as it has become increasingly difficult. PT has suggested SNF for STR, but family is not willing to discuss this option today. Palliative care is planning to visit this afternoon. Gerardo was listed as not having a PCP in the area. It was confirmed by CM that his PCP is Nhung Tafoya, and this has been updated in the chart. Gerardo has not yet had a visit with her, but office confirmed he is a patient in that practice. Town of Residence: [place] Resides with: Spouse (Paris) Significant Other/Family: Local (daughter Erica and good friend, Vance) Employment Status: Retired Instrumental Activities of Daily Living (ADLs): Requires support Medications Medication Management: No Issues/Barriers identified Physical Functioning/Mobility Assistive Device: requires a walker Advance Directives Advance Directives: Do you have an Advance Directive: Y 04/30/16 09:21 AD On File at [facility]: N 11/09/12 16:25 Date Asked 05/22/24 05/22/24 07:22 AD Date Reviewed COLST On File at [facility] COLST Date Scanned Code Status Resuscitation Status Full Code Insurance Coverage/Financial Issues Insurance: Medicare A&B Care Team Visit Care Team Role Provider Type Becky Garcia NP MD [facility] STAFF PHYSICIAN Nhung Tafoya Primary Care Provider ADV PRACTICE REGISTERED NURSE InPatient [facility] Other Providers OTHER Leanna Bowen MD Emergency Provider [facility] STAFF PHYSICIAN Jag Silverio MD Admit Provider [facility] STAFF PHYSICIAN Attending Provider Discharge Potential Discharge Needs: PT Evaluation and PCP F/U Appt Anticipated Barriers to Discharge: None Identified Patient/Family Education Needs: Review discharge instructions, discuss Ask Me Three Transportation: Other (dependent on disposition) Plan: Anticpate that Gerardo will be discharged home with new services for HH RN, PT/OT and BOTTOM SAW OPERATOR vs STR. He will f/u with his PCP and continue per his plan of care. CM will continue to follow and to update the plan as needed. Social Determinants of Health Screening Social Determinants of Health last assessed: 05/23/24 Will the Patient Participate in the Screening?: Yes Do you worry about having a steady place to live?: no Problems where you live: no known problems In the past 12 months, have you had to go without electric, gas, oil or water in your home?: no Have you or anyone in your house had to go without enough food to eat?: no Has lack of transportation kept you from medical appointments or from doing things needed for daily living?: no Has anyone in your life made you feel unsafe or unsupported?: no How hard is it for you to pay for the very basics like food, housing, medical care, and heating? Would you say it is:: Not hard at all Do you want help finding or keeping work or a job?: I do not need or want help If for any reason you need help with day-to-day activities such as bathing, preparing meals, shopping, managing finances, etc., do you get the help you need?: I get all the help I need How often do you feel lonely or isolated from those around you?: Never Do you speak a language other than Kinyarwanda at home?: Yes Does the patient want assistance with any of the above?: No Social Determinants of Health Comments([facility] Details): speak fluent [place] Health Related Social Needs Health related social needs: education (Z55.6) PFSH All Active Problems (Updated 05/22/24 @ 09:41 by Varun Benitez MD) Mass of hand (Acute) Social History Smoking/Tobacco Use Status: Never Smoking risk assessment performed?: Yes Alcohol Intake: never Substance use type: does not use Housing: house Do you feel safe at home: Yes Do you feel safe in your relationship?: Yes Readmission Within the Past 30 Days Yes or No: No
--- NOTE | 2024-05-23 18:07 | PCNE_ITS ---
Date of service: 05/23/24 Time of Service: 15:30 History of Present Illness Narrative: Mr. Carrillo is an 83 y/o M currently hospitalized 2/2 infection of mass on L hand; PMHx sig for melanoma of L hand; present today Paris and friend [facility] Course: presented to ED on 05/22 w/x1wk worsening dizziness, confusion and likely infection of L hand; fever/chills, weakness reported on admission, fungating mass suspicious for cellulitis w/concern for osteomyelitis of 4th metacarpal, vancomycin started w/ ortho recommendations for MRI next day; cultures pending; - PT consult 05/23 recommends d/c to SNF - he refused MRI today, ECHO not avail until Thu - per staff: remains febrile today, controlled w/apap, which he is accepting; also accepting lovenox and vancomycin; ADLs: eating ind, improved nael, incontinence of urine w/urgency, using urinal at bedside, 2 episodes of pre- syncope a/w urinating earlier, now 2 person assist for all transfers, he is refusing hygiene care; last BM yesterday prior to arrival - last night he had increased agitation overnight, including swinging at staff, he has been fine during the day today - pending wound care consult Relevant recent hx: around early summer 2023 (preJuly) he had increasing difficulty using L hand d/t wound (mass) on hand, in September he presented to w/intention of surgically removing mass, however d/t the risks/benefits reviewed w/DH and the outlook of requiring more tests/diagnostics/treatments, they felt overwhelmed and opted to stop this pathway and focus his treatment entirely through [employer] pathways. - dizziness worsening since March, had 3 falls in a row around this time w/hard time getting up, worsening dizziness and weakness over past 2 weeks - per Gerardo/Paris did try topical anti-fungal agent w/no effect on malodor. Gerardo is not bothered by odor, doesn't smell it Dizziness: worsening as above, most noticeable w/orthostatic changes; they were thinking infection could also be contributing, shocked that dehydration is not source; Luke live in [place] together. They have a transgender son Miles and grandson (15y). 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 Gerardo and Paris have been practicing [employer] for several years, they are connected to this community and lean on each other to help make appropriate decision makings as they align with their beliefs - he is aware he is being treated for an infection with an antibiotic, this is okay. they reviewed the potential MRI together and opted for no further deeper interventions/diagnostics outside of what they have already had performed - Paris has already contacted the [facility] and he is on the wait-list, ideally they would have an opening and he could be transferred there; next closest is in [place] and that is too far - as of right now, comfortable w/continuing to receive existing treatment and diagnostics currently getting: all medications, labs and VS are okay; they are okay with IVF if needed, for dehydration specifically Gerardo would want treatments to sustain life, as long as it is anticipated he will be able to contribute to life after intervention, if he were only able to sit, not communicate or get better, he would not want to be kept alive Paris wonders about if remaining in hospital, w/basic nursing care, but no other medical interventions, would be an option, and then they could also practice [employer] treatment options Gerardo has never completed an AD/HCA. Assessment and Plan Assessment and plan (1) Mass of hand: Status: Acute Assessment and plan: previously worked up in ; consistent w/melanoma - likely w/metastasis, unknown d/t preferences in no further work-up/treatment; non-surgical; no function in hand x>8mos (2) Cellulitis and abscess of hand: Status: Acute Assessment and plan: aware of infection - agreeable to medical treatment w/antibiotics, further work- up with MRI feels too invasive - okay w/lab monitoring; did not ask about repeat XR, which previously agreed to preference would be treatment with [employer], already on waitlist for [facility] (3) Dizziness: Status: Acute Assessment and plan: reviewed multifactorial nature of dizziness: infection, dehydration, orthostatic, neurologic, cardiogenic; work up could be all encompassing and involved, or minimal and watchful - preference for latter, w/ongoing infection management, ensure remains hydrated, okay with orthostatic BP checks - impacting ability to care for self, w/increased falls, high fall risk (4) Urinary incontinence: Status: Acute Assessment and plan: urinal at bedside, depends on for urgency incontinence (5) Impaired instrumental activities of daily living: Status: Acute Assessment and plan: fully dependent, Paris providing all care (6) Deficit in activities of daily living (ADL): Status: Acute Assessment and plan: fully dependent at this time, requiring assistance w/all ADLs - history of frequent falls w/difficulty getting up (7) Alevism or spiritual beliefs affecting medical care: Status: Acute Assessment and plan: [employer] - please review any diagnostics, interventions or treatments with Gerardo and/or Paris prior to ordering/completing - they are okay with current treatments: apap, lovenox, vancomycin; VS monitoring; labs; preference to honor spiritual marlene w/[employer] practices - on waitlist as above - wonder about staying in hospital for basic RN care, but under [employer] treatments (8) ACP (advance care planning): Status: Acute Assessment and plan: reviewed palliative care, purpose, philosophy and goals of today's visit reviewed current treatments - antibiotics for infection, unclear of how deep infection is w/o MRI, preferences to not obtain MRI d/t [facility]aritan preferences; okay w/IVF if needed reviewed current code status is FULL code, preference for no changes today, however is interested in learning more of what CPR includes and statistics regarding survival, etc reviewed [employer] guiding principles, navigating the mary areas in CS guidelines and medical treatments available; okay w/continuing current diagnostics and treatments, would not want more invavis Paris wonders if Gerardo could remain in hospital for basic RN care while pursue treatment with [employer]; reviewed typically people in hospital are either: acutely ill, accepting traditional medical treatments OR are receiving symptom management for comfort directed care, typically at end of life; there may be an option to do comfort directed care, focusing only on RN care, however not currently a protocol in place here, so may take some arranging, finagling of wording, and most importantly, insurance would not cover his hospital stay if not actively receiving medical care, would be quite expensive - Paris okay to hold this conversation - reviewed best case would be availability at [facility] occurs w/urgent transfer to them, she will continue to check in with them daily reviewed and completed HCA form, Paris as HCA spent 50m w/ACP (9) Palliative care patient: Status: Acute Assessment and plan: PC will continue to follow Gerardo closely during this hospitalization, plan for f/u on Thu afternoon - reviewed w/family may opt for discharge home at any time based on their preferences, did not review additional supports w/hospice, as Gerardo was already nervous about palliative being end of life care Review of Systems Narrative: as per HPI PFSH All Active Problems (Updated 05/23/24 @ 18:28 by Kenisha Khan NP) Palliative care patient (Acute) Urinary incontinence (Acute) Dizziness (Acute) ACP (advance care planning) (Acute) Alevism or spiritual beliefs affecting medical care (Acute) Cellulitis and abscess of hand (Acute) Deficit in activities of daily living (ADL) (Acute) Impaired instrumental activities of daily living (Acute) Mass of hand (Acute) Social History Smoking/Tobacco Use Status: Never Smoking risk assessment performed?: Yes Alcohol Intake: never Substance use type: does not use Housing: house Do you feel safe at home: Yes Do you feel safe in your relationship?: Yes Exam Narrative Exam Narrative: General: older adult male, lying in hospital bed throughout visit HEENT: hearing grossly WNL; normocephalic, atraumatic, MMM Resp: resp regular and unlabored, speaks full sentences w/o SOB; no audible wheeze no cough Skin: dry, atrophy; L UE hand wrapped; dried sanguineous fluid on exposed fingers noted; malodorous Psych: cooperative, pleasant, closes eyes intermittently but remains engaged and answers questions throughout; thought process WNL, insight/judgment limited - refusal to discuss wound further Results Last Vital Signs Temp 99.9 F H 05/23/24 15:40 Pulse 71 05/23/24 15:31 Resp 17 05/23/24 15:31 BP 105/58 L 05/23/24 15:31 Pulse Ox 93 05/23/24 15:31 Labs 05/23/24 05:56 05/23/24 05:56 Labs: Laboratory Results - last 24 hr 05/23/24 05/23/24 05:56 10:38 WBC 9.00 RBC 3.49 L Hgb 10.6 L Hct 32.0 L MCV 92 MCH 30.4 MCHC 33.1 RDW 13.5 Plt Count 217 MPV 9.3 Immature Gran % 0.6 Neutrophils % 68.5 Lymphocytes % 18.8 Monocytes % 9.7 Eosinophils % 2.2 Basophils % 0.2 Nucleated RBC % 0.0 Absolute Neutrophils 6.17 Absolute Lymphocytes 1.69 Absolute Monocytes 0.87 H Absolute Eosinophils 0.20 Absolute Basophils 0.02 Sodium 141 Potassium 3.5 Chloride 107 Carbon Dioxide 25.7 Anion Gap 8.3 BUN 18 Creatinine 1.3 Est GFR (CKD-EPI 2020) 55.19 Glucose 100 Calcium 11.1 H Total Bilirubin 0.82 AST 14 L ALT 12 L Alkaline Phosphatase 98 Total Protein 6.7 Albumin 2.4 L Random Vancomycin 26.4 Time Spent Time Spent with Patient Time Spent(min): 200
--- NOTE | 2024-05-23 20:24 | PGE_ITS ---
Date of Service Date of service: 05/23/24 Time of Service: 13:00 Assessment and Plan Assessment and plan (1) Mass of hand: Status: Acute Assessment and plan: Per record history of melanoma. Now appears infected. Blood cultures are pending. Does not meet criteria for sepsis, hemodynamically stable. Continue vancomycin pharmacy dosing Imaging concerning for possible osteomyelitis. Patient refused MRI ED discussed case with orthopedics at [facility] who is in agreement with plan to continue antibiotics Continue pain management Follow labs including inflammatory markers DVT prophylaxis enoxaparin daily * Admission: Worsening dizziness, confusion, and hand infection for the past week, with fever and chills. Vancomycin initiated for infection. * Physical therapy: A PT consult on 05/23 recommends discharge to a senior care facility (SNF). * Refusals and limitations: * Refused MRI and ECHO * Remains febrile, controlled with acetaminophen. * Accepts Lovenox and vancomycin. * Needs 2-person assistance for transfers; refusing hygiene care. * Increased agitation overnight, including swinging at staff, but fine today. Started on seroquel * Pending consults: Wound care and cultures. Game Attendant - per request of patient and . Relevant History: * Hand mass: Noticed worsening difficulty using his left hand due to the mass (early summer 2023). A surgical option was considered in September, but after disc ussions about risks, Gerardo and his opted to cease medical intervention and pursued [employer] treatment. * Dizziness and falls: Worsened since March 2024, with 3 falls in a row. Increased dizziness and weakness noted in the past 2 weeks. * Treatment: A topical anti-fungal agent was tried with no effect on the odor; Gerardo does not notice or is bothered by the odor of the mass * [employer] Treatment: * Gerardo and Paris practice [employer], which influences their medical decisions. They are in contact with a [facility] nursing facility ([facility]) and are on a waitlist for potential transfer. * Gerardo is aware of and accepts the use of antibiotics for infection, but opts out of further diagnostic procedures (e.g., MRI). * They are comfortable with current medical care (antibiotics, labs, and vital signs) and would accept IV fluids for dehydration. * Gerardo desires life-sustaining treatments if he can return to a functional quality of life but would not want to be kept alive without the possibility of improvement or communication. Continues to be Full Code * Gerardo has not completed an Advance Directive or Health Care Proxy. Rubio Decisions and Preferences: * Gerardo is open to basic medical care but prefers no aggressive interventions beyond the current treatments. * Paris is inquiring about the possibility of remaining in the hospital with basic nursing care while also practicing [employer] treatments. (2) Dizziness: Status: Acute Assessment and plan: See above Orthostatic vs pending (3) Latter Day or spiritual beliefs affecting medical care: Status: Acute Assessment and plan: see above Game Attendant consult pending per patient request Subjective Subjective Patient reports: no new complaints, feels better, tolerating liquids well, tolerating a regular diet, voiding w/o difficulty, bowel movement and afebrile; denies diarrhea, nausea, vomiting or shortness of breath Interval history since last seen: Awake and alert, conversant. Semi fowlers in bed, in the room and friend visiting. Patient refused the MRI of his hand today. He states he would like the antibiotics and lab tests but not really much else. He did agree to a wound consult and would like to speak with a visiting nurse. Exam Narrative Exam Narrative: * General: Elderly male of stated age, no acute distress. * Head: Atraumatic. * Eyes: Non-icteric, non-injected. * Oral Mucosa: Moist. * Neck: Supple, full range of motion, no jugular venous distention . * Respiratory: Even and unlabored respirations * Cardiovascular: Regular rate and rhythm. * Abdomen: Benign. * Extremities: No edema, moves all extremities. Left hand large wound on dorsum of hand, malodorous. * Neurologic: Awake, alert, oriented, no focal deficits. * Psychiatric: Appropriate mood and affect. * Skin: No rashes or lesions. Objective Last Vital Signs Temp 37.0 C 05/23/24 19:40 Pulse 59 L 05/23/24 19:40 Resp 16 05/23/24 19:40 BP 101/57 L 05/23/24 19:40 Pulse Ox 91 L 05/23/24 19:40 Laboratory Results - last 24 hr 05/23/24 05/23/24 05:56 10:38 WBC 9.00 RBC 3.49 L Hgb 10.6 L Hct 32.0 L MCV 92 MCH 30.4 MCHC 33.1 RDW 13.5 Plt Count 217 MPV 9.3 Immature Gran % 0.6 Neutrophils % 68.5 Lymphocytes % 18.8 Monocytes % 9.7 Eosinophils % 2.2 Basophils % 0.2 Nucleated RBC % 0.0 Absolute Neutrophils 6.17 Absolute Lymphocytes 1.69 Absolute Monocytes 0.87 H Absolute Eosinophils 0.20 Absolute Basophils 0.02 Sodium 141 Potassium 3.5 Chloride 107 Carbon Dioxide 25.7 Anion Gap 8.3 BUN 18 Creatinine 1.3 Est GFR (CKD-EPI 2020) 55.19 Glucose 100 Calcium 11.1 H Total Bilirubin 0.82 AST 14 L ALT 12 L Alkaline Phosphatase 98 Total Protein 6.7 Albumin 2.4 L Random Vancomycin 26.4 Time Spent with Patient Time Spent with Patient: 35-49 minutes Time was spent: preparing to see the patient(eg.review tests), ordering medications,tests, procedures, referring, communicating with other health intensive care medicine specialist, indepentently interpreting results, counseling the patient and care coordination
[2024-05-23] MEDS: Normal Saline 1,000 ML 1000 ML IV (21:20)
[2024-05-23] MEDS: Normal Saline 1,000 ML 150 ML IV (22:23)
--- NOTE | 2024-05-24 02:51 | PTTR_ITS ---
PT Notes Visit Reasons: Lesion, Cellulitis Left Hand Physical Therapy Inpatient Treatment Note Date: 05/24/2024 Precautions: Fall. Standard. Activity as tolerated. Subjective: Very sleepy early today. Rula requested for patient to be seen later today. CHRONIC DISEASE MANAGER Becky stated that patient would be better seen after he has gotten a bolus of IV to help with feelings of unsteadiness. Rula came in midafternoon and said that patient is ready to be moved out of bed. TIERNEY Cantor said that patient was orthoststic earlier today. Objective: General Observation: L hand covered with thick gauze. Swelling and redness noted in hand and wrist. L forearm warm to touch compared to the R forearm. L wrist in 30 degrees of flexion which seems to be his position of comfort. Malodorous L hand. Mental Status: Alert and oriented as to person. Able to follow single step commands. Responses off-tangent 50% of the time while on session. Pain: Moderate pain in L hand and forearm that gets worse when moved and touched Vital Signs: Closely monitored by nursing staff Bed Mobility/Transfers: maximal cueing provided for use of B hands as needed for support, movement sequence, AD management, and posture to reduce fall risk and minimize pain report Rolling minimal assist Supine to sit minimal assist Sit to supine minimal assist Sit to stand minimal assist of 2 Stand to sit minimal assist of 2 Gait: Facilitated safe and correct performance of level surface ambulation utilizing a walker with platform on the left to support left upper extremity covering a distance of 250 feet with contact-guard assist and IV pole management of PT as well as a wheelchair follow all the TIERNEY Guerrier. NO LOB. No report of lighth eadedness but did complain of seeing double that resolved with rest. said that he has had same issue for quite a while now. Balance: Static Sitting: Good Dynamic Sitting: Good Static Standing: Poor Dynamic Standing: Poor Assessment: No report of lightheadedness and dizziness throughout ambulation activity but with new complaint of mildly seeing double. Patient and have not been f ully receptive to full testing to identify cause of vision change but both verbalized that they are okay with pursuing mobility training with physical therapy while on admission. Continue with services to progress mobility level while reducing fall risk. Plan of Care/Treatment Plan: 1-2x/day, 7 days/week x 1 week. Plan of care has been reviewed with the STEAM CONDITIONING OPERATOR providing the service under Physical Therapy direction. Initiate Physical Therapy intervention for pain management as needed, strengthening, bed mobility, transfers, gait, stairs, balance training, and use of assistive device. DISCHARGE RECOMMENDATIONS: [] Home with no services [] [] Home with services [specify] [] Home with outpatient PT [] [X] SNF for continued rehabilitation. Patient will benefit from short-term halfway facility placement for continued skilled physical therapy services in order to progress mobility level, strength, and balance in preparation for a safe discharge to home. [] Senior Care Care [] [] SNF versus LTC based on ability to participate and progress [] TREATMENT CODE/TIME: [id number] x 34 minutes for 2 units (14:51-15:25).
[2024-05-24 03:42] LABS: Bilirubin Negative (Negative); Blood Trace-lysed (Negative); Clarity Clear (Clear); Glucose Negative (Negative); Ketones Negative (Negative); Leukocyte Esterase Negative (Negative); Nitrite Negative (Negative); pH 6.5 (5-8)
[2024-05-24 03:48] LABS: Bacteria Negative HPF (Negative); Casts Negative LPF (Negative); Crystals Negative HPF (Negative); Epithelial Cells Negative HPF (Negative); Mucus Negative (Negative); RBC 0-2 HPF (0-2); WBC 0-2 HPF (0-5)
[2024-05-24 03:49] LABS: C & S Indicated? No
[2024-05-24] MEDS: VANCOMYCIN/WATER (PEG) 1.25 GM/250 ML BAG IVPB (05:32)
[2024-05-24 07:05] LABS: Abs Immature Grans 0.03 10^3/uL (0.0-0.06); Absolute Basophil Count 0.02 10^3/uL (0.0-0.2); Absolute Lymphocyte Count 1.36 10^3/uL (1.2-3.4); Absolute Monocyte Count 0.88 10^3/uL (0.1-0.8); Absolute Neutrophil Count 5.72 10^3/uL (1.2-6.7); Basophils % 0.2 %; Eosinophils % 2.4 %; HCT 30.1 % (40.0-50.0); Immature Grans % 0.4 %; Lymphocytes % 16.6 %; MCH 29.9 pg (27.0-33.0); MCHC 33.2 % (32.0-36.0); MCV 90 fL (80-95); MPV 9.6 fL (8.0-11.0); Monocytes % 10.7 %; Neutrophils % 69.7 %; Platelet Count 205 10^3/uL (130-400); RBC 3.34 10^6/uL (4.36-5.78); RDW 13.4 % (11.8-14.1); RDW-SD 44.4 fL; WBC 8.21 10^3/uL (4.4-10.8)
[2024-05-24 07:34] LABS: Anion Gap 6.7 mmol/L (3-11); BUN 16 mg/dL (7-18); C-Reactive Protein 3.68 mg/dL (<or=0.5); CO2 25.3 mmol/L (21.0-32.0); CREATININE 1.2 mg/dL (0.70-1.30); Chloride 110 mmol/L (98-107); Estimated GFR 60.38 (mL/min/1.73m2); Glucose 98 mg/dL (74-106); Magnesium 1.8 mg/dL (1.8-2.4); Potassium 3.2 mmol/L (3.5-5.1); Sodium 142 mmol/L (136-145)
[2024-05-24 07:46] VITALS: BP 114/61; PULSE 75; RESP 14; TEMP 36.8; O2SAT 97
[2024-05-24] MEDS: Acetaminophen 325 MG TAB 650 MG PO ×2 (08:03→20:38)
[2024-05-24] MEDS: Normal Saline Flush 10 ML SYR IVP ×3 (08:04→20:37)
[2024-05-24] MEDS: Potassium Chloride 20 MEQ TABCR 40 MEQ PO (10:15)
[2024-05-24 10:18] VITALS: BP 101/58; BP 76/48; BP 92/50; PULSE 59; PULSE 63; PULSE 66
[2024-05-24] MEDS: Normal Saline 1,000 ML 1000 ML IV (11:30)
[2024-05-24] MEDS: Normal Saline 1,000 ML 150 ML IV ×2 (12:49→20:38)
--- NOTE | 2024-05-24 13:52 | NUR.NOTE ---
Nursing Note: Pt and declined to see hospital pediatric cardiologist.
--- NOTE | 2024-05-24 15:40 | SCONE_ITS ---
Date of service: 05/24/24 Time of Service: 13:00 Assessment and Plan Assessment and plan (1) Melanoma: Status: Chronic Assessment and plan: 84-year-old man who has a melanoma that is locally invading and destroying his distal left upper extremity and he is declining usual treatment stategies and recommendations. This is in the setting of being members of [employer] which is well- known for creating these types of situations. The extent of his disease is completely unknown, at least in our EMR, due to patient and family refusing some imaging studies. I certainly have significant clinical suspicion for central nervous system involvement/metastasis based off of their descriptions of him being dizzy and falling all the time. Hard to say without imaging confirmation however. I am not a hand surgeon by specialty, but I am quite certain there is no surgical management for this condition beyond an amputation at the level of the distal forearm. The tumor clearly is destroying some of the bones in his hand and at least 50% of the soft tissue of the hand is necrosing away. In empathetic and compassionate, simple, layman's terms, I discussed the reality of the situation with him and his . At times his became frustrated and almost on the verge of anger when I implied that, without a miracle, his hand will not survive. I went further to explain to them that my clinical impression is that he himself will likely not survive much longer under the current situation without source control. I tried to maintain empathy and optimism about his situation with them while painting a realistic expectation. He is probably having some amount of sepsis from the soft tissue that is obviously and clearly dying on his hand and this alone, essentially wet gangrene, could easily become a source of for him in the very near future. I explained to them that well the cancer may not be treatable at this point, the infection processes could be treated if control was achieved and that would likely give him some longer amount of life though certainly would not be a guarantee for cure under any stretch of the imagination. I was very strong and objective about pointing out that it is indeed his body and his life and his decisions to make. I have absolutely no desire to suggest 1 pathway is better than another but rather to help him clearly understand that there are a couple of different paths to take and that our ethical and moral obligation as physicians is to help him understand these pathways and then respect the direction he wishes to take. I also pointed out that it is my(our) ethical and moral obligation, from one human to another, in the face of suffering, to be realistic about the situation and be honest about the situation. I do not think it is appropriate for them to ask healthcare providers to not call this cancer and not refer to this with a grim prognosis. At no point does our commitment to be compassionate and empathetic obligate or warrant healthcare workers to be dishonest or avoidant of disease processes and their usual paths and outcomes. Being realistic and honest does not mean we are pessimistic or negative and it certainly does not mean that we are not compassionate or empathetic. It is a difficult balance to understand the patient and his family's decision to come to a hospital to be assessed and treated as well as their acceptance of intravenous medications and even remaining a full code and wanting CPR and resuscitation should his heart stop . . . And at the same time there is palpable recoil against recommended medical and surgical treatment for a fungating tumor that has essentially eaten away his entire hand to the extent that they do not want to even consider it an active disease or problem. This is perplexing to anyone and common ground is difficult to find. In the end, I have relayed my honest opinion about what his disease is, and what I expect to take place going forward without intervention and control of what is not only very invasive cancer but now an ongoing wet gangrene infection. In all truth, he could be in the next 72 hours from overwhelming sepsis. Hard to say but very possible. He had a BP of 76/48 earlier this morning. The patient certainly has a very certain belief system and confidence in that belief system and that is respectable. The only confusion I have is why they would come to the hospital at all based off of their beliefs, but that is not a necessary point that I need to understand personally or professionally. Again, their roman catholic group is well-known for this type of behavior historically and the line where they accept care and decline care is very unclear at best. * I think the patient should be DNR/DNI and be discharged on hospice. * I think this respects his autonomy and it respects his belief system for how to achieve healing. History of Present Illness Narrative: I was asked to re?consult on a patient who reportedly has a fungating skin tumor on his left hand and has refused surgical intervention. The history is taken from what information is in the chart and what information is given to me by nursing and also what is told to me by the family. 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 Nursing staff reports that the patient and his do not want the problem on his hand to be called cancer nor do they want to discuss any negative prognosis or non-optimistic outcomes. At the bedside I asked the patient to describe to me in simple terms what is wrong with his hand. After some time of debating [id number] he finally, voluntarily is able to use the words cancer and tumor. I asked him in very simple terms if he knows what is wrong with him and he answers me yes I do. He was at [facility] quite sometime ago and has a tissue diagnosis. At some point they all disagreed with the management strategies and plan and since then they have not followed up there. My understanding is that this is a melanoma and the patient verbalizes an agreement that that is correct. I asked him and his to give a generalized picture of how things are doing. They are both quick to report how a little while ago it was really getting smaller and doing better. I asked them to forget about what happened a little while ago and compare a year ago with today and they both reluctantly agree that it is a little bit worse and a little bit bigger. It would seem he is here in the hospital because his is getting frustrated with his inability to stand without getting dizzy and he is having frequent falls at home. She voices a belief that he is simply dehydrated and as long as he can get his hydration fixed, then he will be strong enough to continue forwards. They very eloquently explained to me that their belief system is not relying on a miracle nor do they wish for a miracle but rather there is a science to their belief system which is quite capable of healing his current condition. They have had surgical and oncological consultations in the past and thus far refused conventional recommendations or interventions or surgeries. To my knowledge they are also refusing advanced imaging modalities to assess for the extent of disease. PFSH All Active Problems (Updated 05/24/24 @ 15:52 by Hao Marr MD) Melanoma (Chronic) Palliative care patient (Acute) Urinary incontinence (Acute) Dizziness (Acute) ACP (advance care planning) (Acute) Sikh or spiritual beliefs affecting medical care (Acute) Cellulitis and abscess of hand (Acute) Deficit in activities of daily living (ADL) (Acute) Impaired instrumental activities of daily living (Acute) Mass of hand (Acute) Social History Smoking/Tobacco Use Status: Never Smoking risk assessment performed?: Yes Alcohol Intake: never Substance use type: does not use Housing: house Do you feel safe at home: Yes Do you feel safe in your relationship?: Yes Exam Narrative Exam Narrative: Gen: Non-toxic, comfortable and interactive BUT quite weak and clinically developing the early stages of visible malnutrition and cachexia. Neuro: Alert and oriented x3 Psych: Good mood and affect. Seemingly good insight and understanding into condition although reluctant to discuss anything negative or pessimistic. Chest: Non-labored breathing, no wheezing, no visible shortness of breath. Heart: Regular Left upper extremity: There is a visible fungating mass that has encompassed . . . probably a better term is engulfed . . . the entire dorsum of his hand. The volar surface appears untouched and uninvolved. It is causing mechanical deformity to his fingers which are swollen and are starting to appear to have small amounts of ischemia with patchy areas of necrosis visible at various aspects of the fingers. Proximal to this the skin and soft tissue appears somewhat viable although there is probably at least 1-2 cm of soft tissue swelling and some erythema extending proximal which likely represents some amount of cellulitis relative to the ongoing necrosis of the tissue nearby. Results Last Vital Signs Temp 98.2 F 05/24/24 07:46 Pulse 59 L 05/24/24 10:18 Resp 14 05/24/24 07:46 BP 101/58 L 05/24/24 10:18 Pulse Ox 97 05/24/24 07:46 Labs 05/24/24 05:40 05/24/24 05:40 Labs: Laboratory Results - last 24 hr 05/24/24 05/24/24 03:30 05:40 WBC 8.21 RBC 3.34 L Hgb 10.0 L Hct 30.1 L MCV 90 MCH 29.9 MCHC 33.2 RDW 13.4 Plt Count 205 MPV 9.6 Immature Gran % 0.4 Neutrophils % 69.7 Lymphocytes % 16.6 Monocytes % 10.7 Eosinophils % 2.4 Basophils % 0.2 Nucleated RBC % 0.0 Absolute Neutrophils 5.72 Absolute Lymphocytes 1.36 Absolute Monocytes 0.88 H Absolute Eosinophils 0.20 Absolute Basophils 0.02 Sodium 142 Potassium 3.2 L Chloride 110 H Carbon Dioxide 25.3 Anion Gap 6.7 BUN 16 Creatinine 1.2 Est GFR (CKD-EPI 2020) 60.38 Glucose 98 Calcium 10.0 Magnesium 1.8 C-Reactive Protein 3.68 H Urine Color Yellow Urine Clarity Clear Urine pH 6.5 Ur Specific [place] 1.020 Urine Protein Negative Urine Ketones Negative Urine Blood Trace-lysed H Urine Nitrite Negative Urine Bilirubin Negative Urine Urobilinogen 1.0 H Ur Leukocyte Esterase Negative Urine RBC 0-2 Urine WBC 0-2 Ur Epithelial Cells Negative Urine Crystals Negative Urine Bacteria Negative Urine Casts Negative Urine Mucus Negative Ur Culture Indicated? No Urine Glucose Negative
--- NOTE | 2024-05-24 16:08 | NUR.NOTE ---
Assessment and charting reviewed with Gio Perry, student PREMIUM CARD CANCELLATION CLERK. Kareen Levy, MSN, RNC-OB (clinical instructor)
--- NOTE | 2024-05-24 17:59 | CMPROGNOTE_ITS ---
Date of service: 05/24/24 Time of Service: 14:00 Care Management Progress Note Progress Note Text Progress Note Text: Gerardo was sitting up in the bed, his , Paris and a friend were visiting. Gerardo looked brighter than yesterday, and stated that he is feeling a bit better today. He has been receiving IVF in anticipation of going home. Gerardo is accepting of PT and OT from . He and Paris were asking about borrowing a commode. They were encouraged to call the [employer] in [employer] , or another similar organization. Gerardo is on the wait list at the [facility]. Discharge Potential Discharge Needs: PCP F/U Appt (It is important that the appointment be made prior to discharge for this patient.) Anticipated Barriers to Discharge: None Identified Patient/Family Education Needs: Review discharge instructions, discuss Ask Me Three Transportation: Private vehicle Plan: Anticipate that Gerardo will be discharged home with new PT and OT. He will f/u with his PCP and continue per his plan of care. He will transport home with his . Cm will continue to follow and adjust the plan as needed. Social Determinants of Health Screening Social Determinants of Health last assessed: 05/24/24 Will the Patient Participate in the Screening?: Yes Do you worry about having a steady place to live?: no Problems where you live: no known problems In the past 12 months, have you had to go without electric, gas, oil or water in your home?: no Have you or anyone in your house had to go without enough food to eat?: no Has lack of transportation kept you from medical appointments or from doing things needed for daily living?: no Has anyone in your life made you feel unsafe or unsupported?: no How hard is it for you to pay for the very basics like food, housing, medical care, and heating? Would you say it is:: Not hard at all Do you want help finding or keeping work or a job?: I do not need or want help If for any reason you need help with day-to-day activities such as bathing, preparing meals, shopping, managing finances, etc., do you get the help you need?: I get all the help I need How often do you feel lonely or isolated from those around you?: Never Do you speak a language other than Portuguese at home?: Yes Does the patient want assistance with any of the above?: No Social Determinants of Health Comments(SDOH Details): speak fluent [place] Korean Health Related Social Needs Health related social needs: education (Z55.6)
--- NOTE | 2024-05-24 19:00 | PGE_ITS ---
Date of Service Date of service: 05/24/24 Time of Service: 12:00 Assessment and Plan Assessment and plan (1) Mass of hand: Status: Acute Assessment and plan: Per record history of melanoma. Now appears infected. Blood cultures are pending. Does not meet criteria for sepsis, hemodynamically stable. Continue vancomycin pharmacy dosing Imaging concerning for possible osteomyelitis. 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 Surgical consult completed. His hand is deteriorating, with significant bone destruction and necrosis of soft tissue, and there are concerns about potential central nervous system involvement due to symptoms like dizziness and falls. Despite the severity, he and his reject conventional medical interventions, including surgery, imaging, and cancer treatment, preferring to rely on their marlene-based healing system. The surgeon and I have provided a clear, honest, and empathetic explanation about the likely outcome without intervention: the patient is at risk of ove rwhelming sepsis and possibly in the near future. However, the patient and his continue to resist accepting the cancer diagnosis and its grim prognosis. The surgeon and I emphasized the importance of respecting the patient's autonomy while being realistic and honest about the situation, suggesting that the patient should consider a Do Not Resuscitate and hospice care which patient and state they have not thought of, but will consider. Despite the patient?s religion convictions, which complicate the decision- making process, transitioning to hospice care would honor both the patient?s beliefs and his current medical needs. The situation is complex, with a mismatch between the family's religion beliefs and medical reality, making it difficult to find common ground for treatment options. (2) Dizziness: Status: Acute Assessment and plan: See above Contniues to be orthostatic, will give another bolus and MIVF which patient and agree to. Abx discontinued. (3) Holiness or spiritual beliefs affecting medical care: Status: Acute Assessment and plan: see above Subjective Subjective Patient reports: no new complaints, tolerating liquids well, tolerating a regular diet, voiding w/o difficulty, bowel movement and afebrile; denies flatus, diarrhea, nausea, vomiting or shortness of breath Interval history since last seen: Gerardo states he is feeling better today, less dizziness. Exam Narrative Exam Narrative: * General: Elderly male of stated age, no acute distress. * Head: Atraumatic. * Eyes: Non-icteric, non-injected. * Oral Mucosa: Moist. * Neck: Supple, full range of motion, no jugular venous distention . * Respiratory: Even and unlabored respirations * Cardiovascular: Regular rate and rhythm. * Abdomen: Benign. * Extremities: No edema, moves all extremities. Left hand large wound on dorsum of hand, malodorous. * Neurologic: Awake, alert, oriented, no focal deficits. * Psychiatric: Appropriate mood and affect. * Skin: No rashes or lesions. Objective Last Vital Signs Temp 36.8 C 05/24/24 07:46 Pulse 59 L 05/24/24 10:18 Resp 14 05/24/24 07:46 BP 101/58 L 05/24/24 10:18 Pulse Ox 97 05/24/24 07:46 Laboratory Results - last 24 hr 05/24/24 05/24/24 03:30 05:40 WBC 8.21 RBC 3.34 L Hgb 10.0 L Hct 30.1 L MCV 90 MCH 29.9 MCHC 33.2 RDW 13.4 Plt Count 205 MPV 9.6 Immature Gran % 0.4 Neutrophils % 69.7 Lymphocytes % 16.6 Monocytes % 10.7 Eosinophils % 2.4 Basophils % 0.2 Nucleated RBC % 0.0 Absolute Neutrophils 5.72 Absolute Lymphocytes 1.36 Absolute Monocytes 0.88 H Absolute Eosinophils 0.20 Absolute Basophils 0.02 Sodium 142 Potassium 3.2 L Chloride 110 H Carbon Dioxide 25.3 Anion Gap 6.7 BUN 16 Creatinine 1.2 Est GFR (CKD-EPI 2020) 60.38 Glucose 98 Calcium 10.0 Magnesium 1.8 C-Reactive Protein 3.68 H Urine Color Yellow Urine Clarity Clear Urine pH 6.5 [address] [place] 1.020 Urine Protein Negative Urine Ketones Negative Urine Blood Trace-lysed H Urine Nitrite Negative Urine Bilirubin Negative Urine Urobilinogen 1.0 H Ur Leukocyte Esterase Negative Urine RBC 0-2 Urine WBC 0-2 Ur Epithelial Cells Negative Urine Crystals Negative Urine Bacteria Negative Urine Casts Negative Urine Mucus Negative Ur Culture Indicated? No Urine Glucose Negative Time Spent with Patient Time Spent with Patient: >50 minutes Time was spent: preparing to see the patient(eg.review tests), obtaining and/or reviewing separately otained hiistory, ordering medications,tests, procedures, referring, communicating with other health hospice care sales consultant, indepentently interpreting results, counseling the patient and care coordination
[2024-05-24 19:23] VITALS: BP 110/57; PULSE 60; RESP 17; TEMP 37.2
[2024-05-24 23:18] VITALS: BP 111/60; PULSE 62; RESP 17; TEMP 36.8; O2SAT 94
[2024-05-25 03:12] VITALS: BP 101/60; PULSE 60; RESP 17; TEMP 36.7; O2SAT 97
[2024-05-25] MEDS: Normal Saline 1,000 ML 150 ML IV ×2 (03:53→17:03)
[2024-05-25 05:34] VITALS: BP 90/53; PULSE 84; RESP 18; TEMP 36.4; O2SAT 97
[2024-05-25 07:04] LABS: Abs Immature Grans 0.04 10^3/uL (0.0-0.06); Absolute Basophil Count 0.02 10^3/uL (0.0-0.2); Absolute Eosinophil Count 0.16 10^3/uL (0.0-0.7); Absolute Lymphocyte Count 1.65 10^3/uL (1.2-3.4); Absolute Monocyte Count 0.73 10^3/uL (0.1-0.8); Absolute Neutrophil Count 5.66 10^3/uL (1.2-6.7); Basophils % 0.2 %; Eosinophils % 1.9 %; HCT 31.5 % (40.0-50.0); HGB 10.3 g/dL (13.5-17.5); Immature Grans % 0.5 %; MCH 30.2 pg (27.0-33.0); MCHC 32.7 % (32.0-36.0); MCV 92 fL (80-95); MPV 9.5 fL (8.0-11.0); Monocytes % 8.8 %; Neutrophils % 68.6 %; Platelet Count 211 10^3/uL (130-400); RBC 3.41 10^6/uL (4.36-5.78); RDW 13.7 % (11.8-14.1); RDW-SD 45.8 fL; WBC 8.26 10^3/uL (4.4-10.8)
[2024-05-25 07:19] LABS: Anion Gap 9.7 mmol/L (3-11); BUN 12 mg/dL (7-18); CO2 23.3 mmol/L (21.0-32.0); CREATININE 1.1 mg/dL (0.70-1.30); Calcium 10.1 mg/dL (8.5-10.1); Chloride 109 mmol/L (98-107); Estimated GFR 67.02 (mL/min/1.73m2); Glucose 91 mg/dL (74-106); Magnesium 1.7 mg/dL (1.8-2.4); Potassium 3.5 mmol/L (3.5-5.1); Sodium 142 mmol/L (136-145)
--- NOTE | 2024-05-25 08:29 | PT.INTREAT ---
PT Notes Visit Reasons: Lesion, Cellulitis Left Hand Physical Therapy Inpatient Treatment Note Date: 05/25/2024 Precautions: Fall. Standard. Activity as tolerated. Subjective: Refused walking twice today. Needed help with toileting to transfer from bed to bedside and back. Complained of being sleepy and exhausted. Objective: General Observation: L hand covered with thick gauze. Swelling and redness noted in hand and wrist. L forearm warm to touch compared to the R forearm. L wrist in 30 degrees of flexion and radial deviation which seems to be his position of comfort. Malodorous L hand. Mental Status: Alert and oriented as to person. Able to follow single step commands. Responses off-tangent 50% of the time while on session. Pain: Moderate pain in L hand and forearm that gets worse when moved and touched Vital Signs: Closely monitored by nursing staff Bed Mobility/Transfers: maximal cueing provided for use of B hands as needed for support, movement sequence, AD management, and posture to reduce fall risk and minimize pain report Rolling minimal assist Supine to sit minimal assist Sit to supine minimal assist Sit to stand minimal assist Stand to sit minimal assist Gait: Refused x 2 Balance: Static Sitting: Good Dynamic Sitting: Good Static Standing: Poor Dynamic Standing: Poor Assessment: No report of lightheadedness and dizziness during bed to bedside commode transfer. Patient and have not been fully receptive to full testing to identify cause of vision change but both verbalized that they are okay with pursuing mobility training with physical therapy while on admission. Continue with services to progress mobility level while reducing fall risk. Plan of Care/Treatment Plan: 1-2x/day, 7 days/week x 1 week. Plan of care has been reviewed with the BATCH ROLLER OPERATOR providing the service under Physical Therapy direction. Initiate Physical Therapy intervention for pain management as needed, strengthening, bed mobility, transfers, gait, stairs, balance training, and use of assistive device. DISCHARGE RECOMMENDATIONS: [] Home with no services [] [] Home with services [specify] [] Home with outpatient PT [] [] SNF for continued rehabilitation [] [] Real Estate Utilization Officer Care [] [] SNF versus LTC based on ability to participate and progress [] [X] SNF vs HH PT TREATMENT CODE/TIME: 22779 x 11 minutes for 1 units (8:29-8:45).
[2024-05-25] MEDS: Acetaminophen 325 MG TAB 650 MG PO ×2 (08:38→18:46)
[2024-05-25] MEDS: Normal Saline Flush 10 ML SYR IVP (08:38)
[2024-05-25] MEDS: MAGNESIUM SULFATE 1 GM/100 ML BAG IV_INF (10:07)
[2024-05-25 11:28] VITALS: BP 69/49; BP 95/54; BP 95/58; PULSE 55; PULSE 70; PULSE 74; RESP 16; TEMP 37.2; O2SAT 96
[2024-05-25] MEDS: Normal Saline 1,000 ML 1000 ML IV (11:44)
--- NOTE | 2024-05-25 12:51 | PDOC.CMPRO ---
Date of service: 05/25/24 Time of Service: 12:52 Care Management Progress Note Progress Note Text Progress Note Text: Gerardo is still c/o being dizzy, and has not really been out of bed. , Paris, stated today that she does not feel she can take Gerardo home safely without extra supports. She asked CM to send referrals to SNF. Referrals were sent to [facility], [facility] and [place]. A call was made to Hospice to see if they are aware of any [facility] homes, community homes, or nursing assoc caregivers that are available in the area, but they were not aware of any at this time. Palliative care is meeting with them again this afternoon. Paris appears, and has stated, that she is overwhelmed by this situation. Support given. Paris was encouraged to reach out to her adventist to see if they offered any supports. Discharge Potential Discharge Needs: PCP F/U Appt Anticipated Barriers to Discharge: Bed availability Patient/Family Education Needs: Review discharge instructions, discuss Ask Me Three Transportation: RCT RCT Transportation: Wheel chair van Plan: Gerardo's discharge plan has been somewhat difficult to pin down. His disposition is still pending the results of the referrals that were sent. He will either be transferred to SNF or return home with HH PT/OT and f/u with his PCP and plan of care. CM will continue to follow. Social Determinants of Health Screening Social Determinants of Health last assessed: 05/25/24 Will the Patient Participate in the Screening?: Yes Do you worry about having a steady place to live?: no Problems where you live: no known problems In the past 12 months, have you had to go without electric, gas, oil or water in your home?: no Have you or anyone in your house had to go without enough food to eat?: no Has lack of transportation kept you from medical appointments or from doing things needed for daily living?: no Has anyone in your life made you feel unsafe or unsupported?: no How hard is it for you to pay for the very basics like food, housing, medical care, and heating? Would you say it is:: Not hard at all Do you want help finding or keeping work or a job?: I do not need or want help If for any reason you need help with day-to-day activities such as bathing, preparing meals, shopping, managing finances, etc., do you get the help you need?: I get all the help I need How often do you feel lonely or isolated from those around you?: Never Do you speak a language other than Armenian at home?: Yes Does the patient want assistance with any of the above?: No Social Determinants of Health Comments(SDOH Details): speak fluent Italian Health Related Social Needs Health related social needs: education (Z55.6)
[2024-05-25 13:20] VITALS: BP 71/48; BP 95/56; BP 97/61; PULSE 59; PULSE 71; PULSE 72
--- NOTE | 2024-05-25 15:25 | W.PALPGNOTE ---
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: Status: Acute Assessment and plan: per chart review [facility]: biopsy confirmed SCC, extensive dz, w/muscle involvement highly suspicious of metastasis, potentially SALOONKEEPER preference for no further work-up or traditional medical treatment for SCC does want to continue [employer] treatment uses term wound to describe SCC no function in hand (2) Cellulitis and abscess of hand: Assessment and plan: no longer considering this an infection, vancomycin stopped 05/24 see HPI (3) Dizziness: Status: Acute Assessment and plan: multifactorial; ongoing, maybe slightly better per chart review repeat IVF and ortho BP checks today, ongoing orthostatic drops, certainly contributing to dizziness potentially SALOONKEEPER involvement preference for no ongoing invasive diagnostics, VS okay (4) Urinary incontinence: Status: Acute Assessment and plan: urinal at bedside, bedside commode, depends on for urgency incontinence however keeps removing and having incontinence in bed (5) Confusion: Status: Acute Assessment and plan: ongoing, worse overnight -special permission for Paris to remain w/Gerardo overnight as a non-pharm treatment; hospitalist contacted nursing pot lining supervisor - strongly recommended Paris spend some time away from hospital prior to spending the night (6) Deficit in activities of daily living (ADL): Status: Acute Assessment and plan: fully dependent at this time, requiring assistance w/all ADLs - history of frequent falls w/difficulty getting up (7) Samaritan or spiritual beliefs affecting medical care: Status: Acute Assessment and plan: [employer] - please review any diagnostics, interventions or treatments with Gerardo and/or Paris prior to ordering/completing - they are okay with current treatments - unfortunately not eligible for [facility] d/t this hospitalization per Paris, discussing and dying or end of life topics are traditionally against CS beliefs, and should be avoided in front of them, CS treatments are available for them, which, she wanted clarified, is not hoping for a miracle, rather a dedicated practice with trained professionals (8) ACP (advance care planning): Status: Acute Assessment and plan: reviewed CODE status, DNR/I, completed this portion of COLST reviewed ongoing medical management of orthostatic BP drops w/monitoring and IVF, for now, which they would like to continue reviewed the following w/o Gerardo present, per previous request and Gerardo indicating preference for resting; - reviewed potential discharge plan options: SNF (referrals previously sent), [facility], home w/home care (hospice) Pros/cons of each reviewed, in brief concerns w/SNF, hospital type setting, more professionals w/o CS training; [facility] costs and availability, home care still need to align caregivers, may still practice CS treatments Paris's priority discharge plan would have Gerardo be in a place that is peaceful restful and able to concentrate in Orthodox [employer] treatments. Today, she leans towards finding a CCH - unfortunately, after visit, heard back from local [facility] agency that no known [facility] availability at this time see HPI for other ACP related statements spent 60m w/ACP (9) Palliative care patient: Status: Acute Assessment and plan: PC will continue to follow w/Gerardo during this hospitalization, plan for f/u w/Miriam Alexys tomorrow afternoon - reviewed with Gerardo and Paris - hospice consult on hold at this time, recommend this waits until further PC conversations - please be aware of congregation beliefs and modify language accordingly, avoid using term cancer, preference is wound; use home care for hospice and respect [facility] request to not review in front of Gerardo Subjective Subjective Interval history since last seen: Gerardo remains hospitalized at [facility] 05/01 dizziness; PMHx sig for SCC of L hand; present for visit /[facility] [place] chart review: wound present for 6-9m prior to September 2023 visit, MRI in September confirmed extensive disease w/muscle involvement; worried about surgical mortality risks, offered trial of cemplimab, denied by patient; - [facility] w[facility]diagnosis on 09/28/24 of SCC, invasive, well-differentiated per chart review/team updates - WBC: 10.97 on 05/22, 9 on 05/23, 8.21 on 05/24 and 8.26 on 05/25; CRP elevated at 3.68 on 05/24; ESR 26 on 05/22; temp 100.2 on admission 05/22, 99.9 05/23, afebrile 05/24-, has been receiving apap daily since arrival. wound cultures neg after 72 hours - 05/24 feeling better, less dizziness; wound appears infected, cultures pending, doesn't meet sepsis criteria, hemodynamically stable; continue vanc dosing, imaging concerning for osteomyelitis; orthostatic drops in BP, given IVF w/reported response, will continue; wound care assessment: skin hot, shiny, serosanguinous drainage; no wound care consult available at this time, need dressing care orders - surgical consult 05/24: patient is at risk of overwhelming sepsis and possibly in the near future; suspicious for SALOONKEEPER involvement, no surgical management beyond amputation - vancomycin d/c'd 05/24, last dose yesterday at 5:30am, discontinued at 11:58; received 4 doses total - 05/25: team reporting does not have an infection, wound appears the same as it did on admission, no better no worse, afebrile, wound cultures neg, WBC WNL today. stopped vanc. - continues to have ortho drops and dizziness, potential improvement w/IVF previously, repeat IVF and ortho BPs show ongoing ortho static drops, nurse did report he was more stable on feet today w/transfer to stand compared to yesterday - ADLs: appetite reduced, more picking, potentially r/t hospital food, no issues w/chewing/swallowing, no BM since arrival, refusing bowel meds, BS hypoactive; now a 1 person transfer assist to commode, incontinence of urine and using bedside commode; did work w/PT today, refused walking x2, ongoing recommendations for d/c to SNF vs HH - nursing reports increased confusion overnight, forgetting to use call light or not remembering, difficulty seeing, complaining of feeling forgotten; nursing working on getting an alternative call rodriguez He continues to feel fatigued. denies pain, so far traditional [employer] practices have been helpful for pain management. does have occasional BLE restlessness, Paris wonders if cramps, would be agreeable to trying heating pad. he is getting relieve of discomfort in hand by using other hand to touch palm of L hand. He feels he was worried he was left alone too long, being left alone drained my spirit. he states he has had difficult w/vision for sevreal mos, maybe up to 6 mos, double vision. he cannot see the call [email or web address] would like to stay the night to provide him comfort and assistance. He enjoys playing card games, has a poker group. friend Vance is a nice support for them, he had been spending more time in home to help them. However, he is adamantly against their congregation preferences and has not been supportive of their decisions. Paris has called [facility], unfortunately, bc he has received hospital based care, he is not eligible for their facility until 2 weeks after discharge Gerardo is agreeable to review CODE status today. Paris has requested conversations regarding hospice be avoided in front of him, as they do not see him as dying Gerardo reports his attitude modified regarding his current condition and he is thinking about how to say goodbye to my good friends. He would want rock and roll and country music played at . he would not want a prolonged , get it out of the way, get it over with, does believe in miracles. He would like Paris to influence his decisions because she has more life ahead of her and he would not want medical $$ waste around keeping him alive. He has had a great life does not want to be a burden Paris would like his discharge plan to include a place that is peaceful, restful and able to concentrate on Orthodox Science treatments with a practicing provider Exam Narrative Exam Narrative: General: older adult male, lying in hospital bed; sit to stand transition w/1 person trans assist; requires assistance repositioning in bed HEENT: hearing grossly WNL; normocephalic, atraumatic, MMM Resp: resp regular and unlabored, speaks full sentences w/o SOB; no audible wheeze no cough Skin: dry, atrophy; L UE hand wrapped; dried sanguineous fluid on exposed fingers noted; malodorous Psych: cooperative, pleasant, closes eyes intermittently but remains engaged and answers questions throughout; thought process WNL, insight/judgment limited to fair Objective Last Vital Signs Temp 99.0 F 05/25/24 11:28 Pulse 59 L 05/25/24 13:20 Resp 16 05/25/24 11:28 BP 97/61 L 05/25/24 13:20 Pulse Ox 96 05/25/24 11:28 Laboratory Results - last 24 hr 05/25/24 05:54 WBC 8.26 RBC 3.41 L Hgb 10.3 L Hct 31.5 L MCV 92 MCH 30.2 MCHC 32.7 RDW 13.7 Plt Count 211 MPV 9.5 Immature Gran % 0.5 Neutrophils % 68.6 Lymphocytes % 20.0 Monocytes % 8.8 Eosinophils % 1.9 Basophils % 0.2 Nucleated RBC % 0.0 Absolute Neutrophils 5.66 Absolute Lymphocytes 1.65 Absolute Monocytes 0.73 Absolute Eosinophils 0.16 Absolute Basophils 0.02 Sodium 142 Potassium 3.5 Chloride 109 H Carbon Dioxide 23.3 Anion Gap 9.7 BUN 12 Creatinine 1.1 Est GFR (CKD-EPI 2020) 67.02 Glucose 91 Calcium 10.1 Magnesium 1.7 L
[2024-05-25 19:47] VITALS: BP 108/59; PULSE 60; RESP 18; TEMP 36.6; O2SAT 95
--- NOTE | 2024-05-25 20:15 | PGE_ITS ---
Date of Service Date of service: 05/25/24 Time of Service: 20:15 Assessment and Plan Assessment and plan (1) Mass of hand: Status: Acute Assessment and plan: Squamous Cell Carcinoma (SCC) of Left Hand: * Status: Acute * SCC biopsy confirmed with extensive disease, muscle involvement, and possible TELEVISION AND RADIO REPAIRER metastasis. Patient prefers [employer] treatment over traditional medical approaches and does not wish for further work-up. * No longer considered an infection. Vancomycin stopped as of 05/24. Wound culture was negative after 72 hours. (2) Dizziness: Status: Acute Assessment and plan: Multifactorial, ongoing, but slightly better. Orthostatic BP drops contributing to dizziness, and there?s a possibility of TELEVISION AND RADIO REPAIRER involvement. No invasive diagnostics desired. Continue MIVF and boluses as needed Fully dependent on assistance for all ADLs. History of frequent falls. (3) Zoroastrianism or spiritual beliefs affecting medical care: Status: Acute Assessment and plan: [employer] beliefs impact decisions; treatment preferences and any interventions should be reviewed with Gerardo/Paris. Discussions of or end-of-life topics should be avoided, and [employer] treatments should be respected. Gerardo has been hospitalized since 05/21 for dizziness and has a history of SCC on his left hand. He has refused surgery due to concerns over mortality risks and declined cemplimab treatment. His condition includes dizziness, confusion, urinary incontinence, and a dependency on others for daily activities. He has occasional fatigue and discomfort in his left hand, but his sabianism beliefs lead him to seek non-traditional treatments, particularly [employer] practices. He remains spiritually supported by his , Paris, and they are focused on ensuring his comfort and peace through these treatments. Gerardo has expressed his wishes regarding his end-of-life care, emphasizing minimal medical intervention, avoiding prolonged , and respecting his [employer] beliefs. Palliative care was consulted - Palliative care will continue during hospitalization, with a follow-up planned. Hospice consult on hold, and language should be modified to respect sabianism beliefs, such as avoiding terms like ?cancer? and ?hospice.? (4) Confusion: Status: Acute Assessment and plan: Ongoing, worsened overnight. Special permission granted for Paris to stay with Gerardo. It is strongly recommended she spends time away from the hospital before staying overnight again. Fully dependent on assistance for all ADLs. History of frequent falls. 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 Patient prefers [employer] treatment over traditional medical approaches and does not wish for further work-up. * Cellulitis and Abscess of Hand: * No longer considered an infection. Vancomycin stopped as of 05/24. Wound culture was negative after 72 hours. (6) Urinary incontinence: Status: Acute Assessment and plan: Uses bedside commode and depends for incontinence but removes them, leading to bed incontinence. Plan to dc to short term rehab or community detention - working on referrals continues to contact [facility]; similar to small hospitals - one in [facility]. Subjective Subjective Patient reports: no new complaints, feels better, tolerating liquids well, tolerating a regular diet, voiding w/o difficulty, bowel movement and afebrile; denies diarrhea, nausea or vomiting Interval history since last seen: Very tired, sleeping most of the day, continues to have funny vision when standing. at bedside and would like to stay the night. Discussed with nursing supervisor drilling and shooting and she will make arrangements for to stay. Exam Narrative Exam Narrative: * General: Elderly male of stated age, no acute distress. * Head: Atraumatic. * Eyes: Non-icteric, non-injected. * Oral Mucosa: Moist. * Neck: Supple, full range of motion, no jugular venous distention . * Respiratory: Even and unlabored respirations * Cardiovascular: Regular rate and rhythm. * Abdomen: Benign. * Extremities: No edema, moves all extremities. Left hand large wound on dorsum of hand, malodorous. * Neurologic: Awake, alert, oriented, no focal deficits. * Psychiatric: Appropriate mood and affect. * Skin: No rashes or lesions. Objective Last Vital Signs Temp 36.6 C 05/25/24 19:47 Pulse 60 05/25/24 19:47 Resp 18 05/25/24 19:47 BP 108/59 L 05/25/24 19:47 Pulse Ox 95 05/25/24 19:47 Laboratory Results - last 24 hr 05/25/24 05:54 WBC 8.26 RBC 3.41 L Hgb 10.3 L Hct 31.5 L MCV 92 MCH 30.2 MCHC 32.7 RDW 13.7 Plt Count 211 MPV 9.5 Immature Gran % 0.5 Neutrophils % 68.6 Lymphocytes % 20.0 Monocytes % 8.8 Eosinophils % 1.9 Basophils % 0.2 Nucleated RBC % 0.0 Absolute Neutrophils 5.66 Absolute Lymphocytes 1.65 Absolute Monocytes 0.73 Absolute Eosinophils 0.16 Absolute Basophils 0.02 Sodium 142 Potassium 3.5 Chloride 109 H Carbon Dioxide 23.3 Anion Gap 9.7 BUN 12 Creatinine 1.1 Est GFR (CKD-EPI 2020) 67.02 Glucose 91 Calcium 10.1 Magnesium 1.7 L Time Spent with Patient Time Spent with Patient: >50 minutes Time was spent: preparing to see the patient(eg.review tests), ordering medications,tests, procedures, referring, communicating with other health coronary care unit nurse, indepentently interpreting results, counseling the patient and care coordination
[2024-05-25] MEDS: Normal Saline 250 ML 500 ML IV (21:22)
[2024-05-26] MEDS: Acetaminophen 325 MG TAB 650 MG PO (02:17)
[2024-05-26 06:52] LABS: Abs Immature Grans 0.02 10^3/uL (0.0-0.06); Absolute Basophil Count 0.01 10^3/uL (0.0-0.2); Absolute Eosinophil Count 0.23 10^3/uL (0.0-0.7); Absolute Lymphocyte Count 1.26 10^3/uL (1.2-3.4); Absolute Monocyte Count 0.82 10^3/uL (0.1-0.8); Absolute Neutrophil Count 4.91 10^3/uL (1.2-6.7); Basophils % 0.1 %; Eosinophils % 3.2 %; HCT 28.2 % (40.0-50.0); HGB 9.4 g/dL (13.5-17.5); Immature Grans % 0.3 %; Lymphocytes % 17.4 %; MCHC 33.3 % (32.0-36.0); MCV 90 fL (80-95); MPV 9.8 fL (8.0-11.0); Monocytes % 11.3 %; Neutrophils % 67.7 %; Platelet Count 191 10^3/uL (130-400); RBC 3.13 10^6/uL (4.36-5.78); RDW 13.7 % (11.8-14.1); RDW-SD 44.7 fL; WBC 7.25 10^3/uL (4.4-10.8)
[2024-05-26 07:13] LABS: Anion Gap 7.4 mmol/L (3-11); BUN 10 mg/dL (7-18); CO2 22.6 mmol/L (21.0-32.0); Calcium 9.5 mg/dL (8.5-10.1); Chloride 111 mmol/L (98-107); Estimated GFR 75.14 (mL/min/1.73m2); Glucose 90 mg/dL (74-106); Magnesium 1.8 mg/dL (1.8-2.4); Potassium 3.3 mmol/L (3.5-5.1); Sodium 141 mmol/L (136-145)
[2024-05-26 07:59] VITALS: BP 111/63; PULSE 82; RESP 19; TEMP 36.6; O2SAT 96
[2024-05-26 11:03] VITALS: BP 112/60; BP 76/47; PULSE 64; PULSE 76
[2024-05-26 11:04] VITALS: BP 112/60; PULSE 64
--- NOTE | 2024-05-26 11:10 | PGE_ITS ---
Date of Service Date of service: 05/26/24 Time of Service: 11:10 Assessment and Plan Assessment and plan (1) Mass of hand: Status: Acute Assessment and plan: Squamous Cell Carcinoma (SCC) of Left Hand: Could like lesions to be called in 1 * Status: Acute * SCC biopsy confirmed with extensive disease, muscle involvement, and possible DRAWING KILN OPERATOR metastasis. Patient prefers [employer] treatment over traditional medical approaches and does not wish for further work-up. * No longer considered an infection. Vancomycin stopped as of 05/24. Wound culture was negative after 72 hours. (2) Dizziness: Status: Acute Assessment and plan: As per previous notes: Multifactorial, ongoing, but slightly better. Orthostatic BP drops contributing to dizziness, and there?s a possibility of DRAWING KILN OPERATOR involvement. No invasive diagnostics desired. Now refusing IV fluid status post 1 bolus given for positive orthostatic pressures ; will discontinue ordered Fully dependent on assistance for all ADLs. Has a history of frequent falls. (3) Mandaen or spiritual beliefs affecting medical care: Status: Acute Assessment and plan: [employer] beliefs impact decisions; treatment preferences and any interventions should be reviewed with Gerardo/Paris. Discussions of or end-of-life topics should be avoided, and [employer] treatments should be respected. Gerardo has been hospitalized since 05/21 for dizziness and has a history of SCC on his left hand. He has refused surgery due to concerns over mortality risks and declined cemplimab treatment. His condition includes dizziness, confusion, urinary incontinence, and a dependency on others for daily activities. He has occasional fatigue and discomfort in his left hand, but his mormon beliefs lead him to seek non-traditional treatments, particularly [employer] practices. He remains spiritually supported by his , Paris, and they are focused on ensuring his comfort and peace through these treatments. Gerardo has expressed his wishes regarding his end-of-life care, emphasizing minimal medical intervention, avoiding prolonged , and respecting his [employer] beliefs. Palliative care was consulted - Palliative care will continue during hospitalization, with a follow-up planned. Hospice consult on hold, and language should be modified to respect mormon beliefs, such as avoiding terms like ?cancer? and ?hospice.? Would like to be referred as home care (4) Confusion: Status: Acute Assessment and plan: Ongoing, worsened overnight. Special permission granted for Paris to stay with Gerardo. It is strongly recommended she spends time away from the hospital before staying overnight again. Fully dependent on assistance for all ADLs. History of frequent falls. 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 Patient prefers [facility] treatment over traditional medical approaches and does not wish for further work-up. * Cellulitis and Abscess of Hand: * No longer considered an infection. Vancomycin stopped as of 05/24. Wound culture was negative after 72 hours. (6) Urinary incontinence: Status: Acute Assessment and plan: Uses bedside commode and depends for incontinence but removes them, leading to bed incontinence. Plan to dc to short term rehab or community group home - working on referrals continues to contact [facility]; similar to [facility] - one in [facility]. (7) Discharge planning issues: Status: Acute Assessment and plan: To be discharged home with home care for hospice in a.m. Discussed with Dr. Bueno Objective Last Vital Signs Temp 36.6 C 05/26/24 07:59 Pulse 82 05/26/24 07:59 Resp 19 05/26/24 07:59 BP 111/63 05/26/24 07:59 Pulse Ox 96 05/26/24 07:59 Laboratory Results - last 24 hr 05/26/24 05:48 WBC 7.25 RBC 3.13 L Hgb 9.4 L Hct 28.2 L MCV 90 MCH 30.0 MCHC 33.3 RDW 13.7 Plt Count 191 MPV 9.8 Immature Gran % 0.3 Neutrophils % 67.7 Lymphocytes % 17.4 Monocytes % 11.3 Eosinophils % 3.2 Basophils % 0.1 Nucleated RBC % 0.0 Absolute Neutrophils 4.91 Absolute Lymphocytes 1.26 Absolute Monocytes 0.82 H Absolute Eosinophils 0.23 Absolute Basophils 0.01 Sodium 141 Potassium 3.3 L Chloride 111 H Carbon Dioxide 22.6 Anion Gap 7.4 BUN 10 Creatinine 1.0 Est GFR (CKD-EPI 2020) 75.14 Glucose 90 Calcium 9.5 Magnesium 1.8 C-Reactive Protein 4.40 H
[2024-05-26] MEDS: Lactated Ringers 500 ML IV (11:34)
[2024-05-26] MEDS: Normal Saline Flush 10 ML SYR IVP ×3 (11:35→16:53)
--- NOTE | 2024-05-26 12:31 | W.PALPGNOTE ---
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 Coordinated with hospice team. He will need hospital bed, BSC and over bed table. (2) Cellulitis and abscess of hand: Assessment and plan: no longer considering this an infection, vancomycin stopped 05/24 (3) Dizziness: Status: Acute Assessment and plan: multifactorial; ongoing They have asked for IVF to be stopped at this point. (4) Urinary incontinence: Status: Acute Assessment and plan: urinal at bedside, bedside commode, depends on for urgency incontinence however keeps removing and having incontinence in bed (5) Confusion: Status: Acute Assessment and plan: ongoing, worse overnight Paris is staying with him. (6) Deficit in activities of daily living (ADL): Status: Acute Assessment and plan: fully dependent at this time, requiring assistance w/all ADLs - history of frequent falls w/difficulty getting up (7) Caodaism or spiritual beliefs affecting medical care: Status: Acute Assessment and plan: Per previous Palliative care note: Moravian Scientists - please review any diagnostics, interventions or treatments with Gerardo and/or Paris prior to ordering/completing - they are okay with current treatments - [facility] this hospitalization per Paris, discussing and dying or end of life topics are traditionally against CS beliefs, and should be avoided in front of them, CS treatments are available for them, which, she wanted clarified, is not hoping for a miracle, rather a dedicated practice with trained professionals (8) ACP (advance care planning): Status: Acute Assessment and plan: He has previously established that he is a DNR/I, completed this portion of COLST with Kenisha Khan NP. The plan is to go home with hospice (Please refer to as Home care). Equipment ordered. Declines Comfort kit for now. Will likely want minimal visits. They are hoping for RN PRACTITIONER to help with bathing. (9) Palliative care patient: Status: Acute Assessment and plan: Hospice referral sent. Plan is for discharge home tomorrow. Discussed with hospice team. Subjective Subjective Interval history since last seen: Gerardo was seen in his hospital room with his , Paris present. Gerardo slept through most of the visit until he awoke with urgency to void. Please see previous Palliative notes from Kenisha Khan NP. At this point, they have decided to go home on Home care, which is technically hospice but they prefer to call it home care. Paris is prepared to sign on as caregiver for Gerardo at home. Paris is requesting hospital bed, BSC and over bed table. She is hoping to get help with bathing Gerardo at home. She does not feel that they will need a lot of help from home care/hospice. Reviewed that a visit from RN is required every 2 weeks, she is agreeable to this. Discussed that generally a comfort kit is prescribed and in the home for various symptoms that arise. She states, we won't be needing that. Paris feels that this is not a downward trajectory that Gerardo is on. She feels this is temporary and that he will begin to improve. 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 Paris reports that she was working on completing paperwork to establish care at [facility]. She is advised that Gerardo can use Hospice providers for PCP if they wish. Exam Narrative Exam Narrative: General: very pleasant, elderly man, sleeping through most of the visit. He did not appear to be in distress. HEENT: normocephalic, atraumatic, EOMI, mmm Neck: supple Respiratory: respirations appear to be even and unlabored at rest. Ext: LUE with malodorous wound with dressing C/D/I. Moves all 4 extremities freely. Objective Last Vital Signs Temp 36.6 C 05/26/24 07:59 Pulse 82 05/26/24 07:59 Resp 19 05/26/24 07:59 BP 111/63 05/26/24 07:59 Pulse Ox 96 05/26/24 07:59 Laboratory Results - last 24 hr 05/26/24 05:48 WBC 7.25 RBC 3.13 L Hgb 9.4 L Hct 28.2 L MCV 90 MCH 30.0 MCHC 33.3 RDW 13.7 Plt Count 191 MPV 9.8 Immature Gran % 0.3 Neutrophils % 67.7 Lymphocytes % 17.4 Monocytes % 11.3 Eosinophils % 3.2 Basophils % 0.1 Nucleated RBC % 0.0 Absolute Neutrophils 4.91 Absolute Lymphocytes 1.26 Absolute Monocytes 0.82 H Absolute Eosinophils 0.23 Absolute Basophils 0.01 Sodium 141 Potassium 3.3 L Chloride 111 H Carbon Dioxide 22.6 Anion Gap 7.4 BUN 10 Creatinine 1.0 Est GFR (CKD-EPI 2020) 75.14 Glucose 90 Calcium 9.5 Magnesium 1.8 C-Reactive Protein 4.40 H
--- NOTE | 2024-05-26 12:36 | PT.INTREAT ---
PT Notes Visit Reasons: Lesion, Cellulitis Left Hand Physical Therapy Inpatient Treatment Note Date: 05/26/2024 Precautions: Fall. Standard. Activity as tolerated. Subjective: and patient are both agreeable to today's session. Objective: General Observation: L hand covered with thick gauze. Swelling and redness noted in hand and wrist. L forearm warm to touch compared to the R forearm. L wrist in 30 degrees of flexion and radial deviation which seems to be his position of comfort. Malodorous L hand. Mental Status: Alert and oriented as to person. Able to follow single step commands. Responses off-tangent 50% of the time while on session. Pain: Moderate pain in L hand and forearm that gets worse when moved and touched Vital Signs: Closely monitored by nursing staff Bed Mobility/Transfers: Maximal cueing provided for use of B hands as needed for support, movement sequence, AD management, and posture to reduce fall risk and minimize pain report Supine to sit contact guard assist with head of bed flat Sit to supine contact guard assist to B LE only Sit to stand stand by assist Stand to sit stand by assist Gait: Facilitated safe and correct performance of level surface ambulation utilizing a walker with platform on the left to support left upper extremity covering a distance of 250 feet with contact-guard assist and IV pole management of Rula as well as a wheelchair follow PT. NO LOB. No report of lightheadedness chest pain, and headache throughout session. Stairs: Negotiated 6 x 4-inch steps and 4 x 6-inch steps while holding onto R rail, L UE on sling for comfort. Contact guard assist provided during descent only. Balance: Static Sitting: Good Dynamic Sitting: Good Static Standing: Fair Dynamic Standing: Fair Assessment: No report of lightheadedness and dizziness throughout ambulation activity. Patient and have not been fully receptive to full testing to identify cause of vision change but both verbalized that they are okay with pursuing mobility training with physical therapy while on admission. Continue with services to progress mobility level while reducing fall risk. Plan of Care/Treatment Plan: 1-2x/day, 7 days/week x 1 week. Plan of care has been reviewed with the SWIMMING POOL PLASTERER HELPER providing the service under Physical Therapy direction. Initiate Physical Therapy intervention for pain management as needed, strengthening, bed mobility, transfers, gait, stairs, balance training, and use of assistive device. DISCHARGE RECOMMENDATIONS: [] Home with no services [] [] Home with services [specify] [] Home with outpatient PT [] [] SNF for continued rehabilitation [] [] Alf Care [] [] SNF versus LTC based on ability to participate and progress [] [X] PT vs SNF TREATMENT CODE/TIME: 24190 x 27 minutes for 2 units (12:36-13:03).
[2024-05-26 15:08] VITALS: BP 115/59; PULSE 79; RESP 17; TEMP 37.7; O2SAT 98
--- NOTE | 2024-05-26 17:49 | PDOC.CMPRO ---
Date of service: 05/26/24 Time of Service: 10:00 Care Management Progress Note Progress Note Text Progress Note Text: Gerardo has been more friendly with CM today, but he did state that his hand hurts, and he was also not really able to work with PT today. He was orthostatic again this morning, but per nursing, he refused tx with IVF today. Gerardo and Paris met with palliative care today, and decided to accept hospice and its supports. Later in the day, Paris asked to speak with CM. She and Gerardo did not feel right about accepting hospice. It just does not fit with their beliefs. Paris was hoping to still get the hospital bed for Gerardo, but PT did not find it medically necessary for him at this point. Paris was made aware of this, and she was making arrangements to rent a bed on her own. CM reminded her that this would be part of the hospice home care package, but she still did not want the home care service. Paris has made arrangements to receive help from their spiritism community, and a [facility] home care nurse will be visiting their home. Discussed with Paris that Gerardo has no medical needs at this time, and will likely be discharged tonight or tomorrow. Discharge Potential Discharge Needs: PCP F/U Appt Anticipated Barriers to Discharge: None Identified Patient/Family Education Needs: Review discharge instructions, discuss Ask Me Three Transportation: Private vehicle (Paris was made aware of the lift assist resource through her local fire department) Plan: Gerardo will be discharged home with no new services. He will be encouraged to f/u with his PCP. He will be supported through his spiritism and transport home in a private vehicle. CM will continue to follow. Social Determinants of Health Screening Social Determinants of Health last assessed: 05/26/24 Will the Patient Participate in the Screening?: Yes Do you worry about having a steady place to live?: no Problems where you live: no known problems In the past 12 months, have you had to go without electric, gas, oil or water in your home?: no Have you or anyone in your house had to go without enough food to eat?: no Has lack of transportation kept you from medical appointments or from doing things needed for daily living?: no Has anyone in your life made you feel unsafe or unsupported?: no How hard is it for you to pay for the very basics like food, housing, medical care, and heating? Would you say it is:: Not hard at all Do you want help finding or keeping work or a job?: I do not need or want help If for any reason you need help with day-to-day activities such as bathing, preparing meals, shopping, managing finances, etc., do you get the help you need?: I get all the help I need How often do you feel lonely or isolated from those around you?: Never Do you speak a language other than [place] at home?: Yes Does the patient want assistance with any of the above?: No Social Determinants of Health Comments(SDOH Details): speak fluent [place] Health Related Social Needs Health related social needs: education (Z55.6)
--- NOTE | 2024-05-26 17:58 | W.PM.DS.N ---
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: Status: Acute (2) Cellulitis and abscess of hand: (3) Dizziness: Status: Acute (4) Urinary incontinence: Status: Acute (5) Confusion: Status: Acute (6) Deficit in activities of daily living (ADL): Status: Acute (7) Jew or spiritual beliefs affecting medical care: Status: Acute (8) ACP (advance care planning): Status: Acute (9) Palliative care patient: Status: Acute (10) Discharge planning issues: Status: Acute Discharge Plan Disposition Patient Disposition: Home Condition: Improving Discharge Details Reason For Visit: Lesion, Cellulitis Left Hand Admit Date/Time: 05/25/24 15:09 Admit Provider: Jag Silverio Attending Provider: Jag Silverio Primary Care Provider: Nhung Tafoya [facility] Course Hospital Course: This 83-year-old male patient past medical history significant 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 Does not meet sepsis criteria with stable vital signs. He was started on vancomycin. Blood cultures have been obtained and pending inflammatory markers have been added.. He received IV bolus in the emergency department. He underwent imaging of the hand that did show marked soft tissue swelling and an area on the radial and dorsal aspect of the diaphysis of the fourth metatarsal carpals suspicious for osteomyelitis. Imaging by MRI is recommended to further characterize. The case was discussed with orthopedics at [facility] who is in agreement with continuation of antibiotics for now and MRI. Hospitalist is asked to admit to the medical surgical unit for further treatment and management. Of note it is documented patient is a poor historian and did undergo a head CT which showed no acute findings. Blood cultures were negative and infection was ruled out. The patient refused MRI. Vancomycin was discontinued. Biopsy from previous record confirmed squamous cell carcinoma of the left true biopsy, most likely suspicious for metastasis with involvement of muscle and questionable CASINO INVESTIGATOR involvement. 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 Patient continued to refuse medical intervention but would like to receive nursing care and would prefer that medical terms such as cancer or carcinoma not to be used from them?referring to lesion as wound. The patient initially agreed to discharge home with hospice services to admit them but later on refused. Physical therapy recommended home health physical therapy which was also refused. Request made for provider to write a letter for medical necessity for hospital bed could not be dictated due to the fact that physical therapy did not see the need for hospital bed at home and there is no medical necessity at this time. Recommendation given to seek further community meeting via her primary care practitioner with home they will have to follow-up within 7 days of discharge. Patient denied the need for pain medicine. Patient will be discharged home today and remain agreeable to follow-up with outpatient palliative care. Discussed with Dr. Bueno Home Meds and New Rx's Prescriptions: No Action No Known Home Meds Discharge Instructions Stand Alone Forms: Nursing Discharge Form Referrals: Nhung Tafoya [Primary Care Provider] - (Follow-up with PCP within 7 days of discharge Call Thursday to set up an appointment) Activity:: Activity as Tolerated Equipment/Supplies:: FWW with left platform Diet:: As Tolerated Discharge Orders Discharge Orders: Discharge Order (Routine); Ordered 05/26/24 Ordered By: Gabriela Leung DS: Summary Time Spent with Patient providing and/or coordinating discharge services: Greater than 30 minutes Status at Discharge Functional status at discharge: uses cane/walker Overall status at discharge: patient is progressing back to baseline Mental Status: mental status grossly normal Speech and Movement: speech and movement normal Mood: congruent mood Affect: normal affect Quality:SDOH Health Related Social Needs: Health related social needs education (Z55.6) Exam Narrative Exam Narrative: Constitutional The patient is sitting in chair without acute distress Eyes: Well aligned Neuro:alert and oriented to self, person, place . No neurological focal deficit Resp: Unlabored breathing, clear lung bilaterally Cardio: regular rhythm, S1, S2, no murmur, capillary refill<3 sec. to LUE, bilateral radial pulses positive GI: Abdomen is not distended, soft and non tender, bowel sounds are present : Negative Costovertebral angle tenderness Back/spine/Pelvis: No back tenderness, normal alignment Integumentary:lesions to LUE d/t neoplasm squamous cell carcinoma of the left hand Psych: RASS 0, congruent mood and normal affect. Psych Mental Status: mental status grossly normal Speech and Movement: speech and movement normal Mood: congruent mood Affect: normal affect DS: Data Vitals/I&O Vitals and I&O: Vital Signs Temperature 37.7 C H 05/26/24 15:08 Temperature Source Tympanic 05/26/24 15:08 Pulse 79 05/26/24 15:08 Pulse Rhythm Regular 05/22/24 15:15 Pulse 81 05/22/24 10:00 Respiratory Rate 17 05/26/24 15:08 Respiratory Effort Normal 05/22/24 15:15 Respiratory Depth Normal 05/22/24 15:15 Respiratory Pattern Normal 05/22/24 15:15 Blood Pressure 115/59 L 05/26/24 15:08 Blood Pressure Mean 79 05/22/24 13:46 Blood Pressure Position Supine 05/22/24 04:01 Pulse Oximetry 98 05/26/24 15:08 Oxygen Delivery Method Room Air 05/26/24 15:08 Oxygen Flow Rate 0 05/26/24 15:08 Pain Level 2 05/25/24 19:47 Comment bp map while sitting 63 bp map while standing 56 05/24/24 10:18 Intake & Output 05/25/24 05/26/24 05/26/24 23:59 11:59 23:59 Intake Total 1350 / 3790 200 / 1700 1500 / 1700 Output Total 600 / 1235 1000 / 1425 425 / 1425 Balance 750 / 2555 -800 / 275 1075 / 275 Intake: IV 1350 / 3350 0 / 1500 1500 / 1500 Oral 200 / 200 Output: Urine 600 / 1235 1000 / 1425 425 / 1425 Other: Urine Color Pale Pale Yellow Yellow Urine Appearance Clear Clear Clear Urine Odor Normal Normal Stool Size Copious Stool Characteristics Formed Data Completed and Pending Labs on day of discharge: Labs from last 24 hours 05/26/24 05:48 WBC 7.25 RBC 3.13 L Hgb 9.4 L Hct 28.2 L MCV 90 MCH 30.0 MCHC 33.3 RDW 13.7 Plt Count 191 MPV 9.8 Immature Gran % 0.3 Neutrophils % 67.7 Lymphocytes % 17.4 Monocytes % 11.3 Eosinophils % 3.2 Basophils % 0.1 Nucleated RBC % 0.0 Absolute Neutrophils 4.91 Absolute Lymphocytes 1.26 Absolute Monocytes 0.82 H Absolute Eosinophils 0.23 Absolute Basophils 0.01 Sodium 141 Potassium 3.3 L Chloride 111 H Carbon Dioxide 22.6 Anion Gap 7.4 BUN 10 Creatinine 1.0 Est GFR (CKD-EPI 2020) 75.14 Glucose 90 Calcium 9.5 Magnesium 1.8 C-Reactive Protein 4.40 H Preliminary micro results at discharge 05/22/24 04:56 Blood Culture - Preliminary Blood NO GROWTH 96 HOURS 05/22/24 04:25 Blood Culture - Preliminary Blood NO GROWTH 96 HOURS PFSH All Active Problems (Updated 05/26/24 @ 13:35 by Gabriela Leung APRN) Discharge planning issues (Acute) Confusion (Acute) 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 (Acute) Palliative care patient (Acute) Urinary incontinence (Acute) Dizziness (Acute) ACP (advance care planning) (Acute) Jew or spiritual beliefs affecting medical care (Acute) Deficit in activities of daily living (ADL) (Acute) Impaired instrumental activities of daily living (Acute) Mass of hand (Acute) Social History Smoking/Tobacco Use Status: Never Smoking risk assessment performed?: Yes Alcohol Intake: never Substance use type: does not use Housing: house Do you feel safe at home: Yes Do you feel safe in your relationship?: Yes Time Spent with Patient Time Spent with Patient: 70-84 minutes4 Time was spent: preparing to see the patient(eg.review tests), obtaining and/or reviewing separately otained hiistory, ordering medications,tests, procedures, referring, communicating with other health child care associate teacher, indepentently interpreting results, counseling the patient and care coordination
== END 2024-05-26 19:04 | disposition home or self-care (01) | DRG 543 ==
LOC: ER 13:01 → MS 14:33
PROVIDERS: Emergency Medicine Emergency Medical Services; Nurse Practitioner Acute Care; Nurse Practitioner Family; Admitting Provider Family Medicine; Emergency Provider Emergency Medicine; PCP Nurse Practitioner Family; Responsible Provider Nurse Practitioner Acute Care; Visit Provider Family Medicine
DX: C49.12 Malignant neoplasm of connective and soft tissue of left upper limb, including shoulder (principal); C79.40 Secondary malignant neoplasm of unspecified part of nervous system; M86.8X4 Other osteomyelitis, hand; R41.0 Disorientation, unspecified; R29.6 Repeated falls; R42 Dizziness and giddiness; R32 Unspecified urinary incontinence; Z53.1 Procedure and treatment not carried out because of patient's decision for reasons of belief and group pressure
CPT/HCPCS: 00123; 36415; 80048; 80053; 85652; 87040; 87635; 93005; 96361; 96365; 96366; 96372; 97162; 97530; 99223; 99285; J1650; 70450; 70486; 73110; 73130; 80202; 81003; 81015; 83735; 84484; 85025; 86140; 87086; 93010; 99222; 99232; 99233; 99239; G0378; J3370; J3372; J3475